=== PATIENT | male | born 1985 | race African-American/Black ===

== ENCOUNTER 2017-11-22 19:51 | Inpatient (IN) | payer MEDICAID, SELFPAY ==
[2017-11-22 19:53] VITALS: BP 115/79; PULSE 125; RESP 24; TEMP 39.5; O2SAT 94; BMI 34.0
--- NOTE | 2017-11-22 20:18 | RAD_ITS ---
STUDY: X-RAY CHEST REASON FOR EXAM: Male, 32 years old. Cough, persistent hiccups. TECHNIQUE: AP and lateral views of the chest. COMPARISON: None. FINDINGS: There are perihilar opacities associated with a patchy opacity within the right upper lobe. Normal size heart. Normal visualized aortic arch and descending thoracic aorta. Normal visualized thoracic spine. Normal visualized ribs, clavicles, and shoulders. There is no demonstrated abnormality of the visualized soft tissue structures of the upper abdomen. RAD/Chest PA and Lateral IMPRESSION: Right upper lobe and perihilar patchy opacities likely reflect some combination of pneumonia and/or edema, cannot exclude underlying neoplastic process. Recommend a CT or short interval follow-up chest radiograph in 6-8 weeks. Electronically Signed: Bibiana Figueroa MD at 21:06 EDT Tel , Service support ,
[2017-11-22] MEDS: Acetaminophen 500 MG Tablet 1000 MG PO (20:30)
[2017-11-22] MEDS: Ketorolac 30 MG/ML Syringe IV (20:35)
[2017-11-22] MEDS: 0.9% Normal Saline 1,000 ML 1000 ML IV ×2 (20:35→21:32)
[2017-11-22] MEDS: Ondansetron 4 MG/2 ML Vial IV (20:35)
[2017-11-22 20:54] LABS: Absolute Lymphocyte Count 1.05 X10^3/ul (0.83-4.51); Absolute Neutrophil Count 19.7 X10^3/uL (2.0-7.7); Basophil# 0.02 X10^3/uL; Basophil% 0.1 % (0-1); Hematocrit 44.3 % (40-54); Hemoglobin 15.4 g/dl (13.0-16.5); Lymphocyte # 1.05 X10^3/ul (4.0); Lymphocyte % 4.7 % (19-41); Mean Corp Hgb Conc 34.8 g/gl (32-36); Mean Corpuscular Hgb 28.9 pg (27.0-32.0); Mean Corpuscular Volume 83.1 fL (80-94); Mean Platelet Vol. 10.1 fl (6.2-12.0); Monocyte% 5.4 % (0-10); Neutrophil # 19.71 X10^3/uL (2.7-7.7); Neutrophil % 88.7 % (47-70); POSITIVE COUNT NO; POSITIVE DIFFERENTIAL NO; POSITIVE MORPHOLOGY NO; Platelet Count 205 K/mm3 (150-450); RBC Distribution Width CV 13.2 % (11.6-14.6); RBC Distribution Width SD 40.2 fl (35.1-43.9); Red Blood Count 5.33 M/mm3 (4.6-6.2); White Blood Count 22.2 K/mm3 (4.4-11.0)
[2017-11-22 21:17] LABS: Lactic Acid 1.7 mmol/L (0.4-2.0)
[2017-11-22] MEDS: levoFLOXacin IV 750 MG/150 ML BAG 100 MG IV (21:32)
[2017-11-22 21:34] VITALS: BP 139/89; PULSE 102; RESP 15; TEMP 38.3; O2SAT 94
[2017-11-22 21:40] LABS: ALB/GLOB Ratio 0.6 RATIO (0.9-2.4); AST(SGOT) 95 U/L (15-37); Alanine Aminotransfer ALT/SGPT 60 U/L (16-61); Albumin, Serum 2.7 g/dL (3.2-5.0); Alkaline Phosphatase 81 U/L (45-117); Anion Gap 9 (5-15); BUN 13 mg/dL (7-18); BUN/Creat Ratio 8.1 RATIO (10-20); Calcium,Total 8.5 mg/dL (8.5-10.1); Chloride 98 mmol/L (98-107); Creatinine, Serum 1.61 mg/dL (0.70-1.30); EST Glomerular Filtration Rate 53 mL/min (>60); Est Glom Filt Rate - Afr Amer 64 mL/min (>60); Estimated Creatinine Clearance 73.75 ml/min; Globulin 4.7 g/dL (2.2-4.2); Glucose 166 mg/dL (74-106); Potassium 3.6 mmol/L (3.5-5.1); Protein, Total 7.4 g/dL (6.4-8.2); Sodium Level 131 mmol/L (136-145)
--- NOTE | 2017-11-22 21:41 | EKG12_ITS ---
Test Reason : FEVER Blood Pressure : / mmHG Vent. Rate : 120 BPM Atrial Rate : 120 BPM P-R Int : 156 ms QRS Dur : 082 ms QT Int : 294 ms P-R-T Axes : 048 028 000 degrees QTc Int : 415 ms Sinus tachycardia Nonspecific T wave abnormality Abnormal ECG Confirmed by FARZANA GILBERT MD ([id number]), story editor JAZMINE PELLETIER ([id number]) on 11/24/2017 3:30:34 PM Referred By: LATIA Confirmed By:FARZANA GILBERT MD
[2017-11-22 22:05] LABS: Color, Urine Amber (Yellow); Glucose, Dipstick Normal (Normal); Ketone-Dipstick 5 mg/dl (Negative); Leukocyte Esterase-Dipstick 25 /ul (Negative); Nitrite-Dipstick Positive (Negative); Occult Blood-Urine 250 /ul (Negative); Protein-Dipstick 500 mg/dl (Negative); Urine Clarity Cloudy (Clear); Urine Urobilinogen 1 mg/dl (Normal)
[2017-11-22 22:07] LABS: Urine Bilirubin Dipstick 1 mg/dL (Negative)
[2017-11-22 22:30] VITALS: BP 132/85; PULSE 91; RESP 17; TEMP 38.1; O2SAT 96
--- NOTE | 2017-11-22 22:30 | ED.VISSUMM ---
- ER Visit Summary Date of Service: 11/22/17 Chief Complaint: Fever History of Present Illness: The patient is a [address] Bird. Patient reports that he has a fever that began 4 days ago. He reports that it has been 106?. Also complains of a cough that is productive of blood-tinged sputum. He has had moderate difficulty breathing and has been wheezing. He does not use an inhaler. Patient reports she has lower abdominal pain. He has been nauseated and vomited approximately 10 times. No blood in his emesis. He has had multiple episodes of watery diarrhea. No blood in stools or black tarry stools. Complains of a headache is 7-10 severity and generalized weakness. Physical Examination: Vitals: 103.1, 150/79, 125, 24, 94% room air which is not hypoxic. General: Well-nourished and well-developed. Head: Normocephalic atraumatic. Neck: Supple, no lymphadenopathy. No JVD. Nontender. Cardiovascular: Tachycardic regular rhythm. No murmurs. Respiratory: No respiratory distress. Clear to auscultation bilaterally. Abdominal: Soft, nontender, nondistended, normal bowel sounds. No guarding, rebound, or peritoneal signs. Back: Nontender. Extremities: Nontender, no edema. Skin: Normal color, no rash. Neurologic: Alert and oriented ?3. Cranial nerves II through XII are intact. Normal strength and sensation. Psych: Normal affect. Test Results: Chest x-ray shows right upper lobe and perihilar infiltrates. Influenza is negative. CBC is marked for white count 22.2 with 89 segmented neutrophils. Lactic acid is 1.7. Chem-7 is more for sodium 131 and glucose 166. Creatinine is 1.61. LFTs marked for an AST of 95. UA shows nitrites and blood as well as 4+ bacteria. Emergency Department Course and Treatment: Patient was given Levaquin IV. He was given Toradol and Tylenol for his fever. Is given Zofran for his nausea. He received 2 L of normal saline. Treatment Plan: Patient was discussed with Dr. Burrows. He will be admitted to the hospital for further evaluation and treatment. Disposition: Admitted in improved condition. Impression: 1. Pneumonia, community-acquired. 2. Sepsis. This note was generated with Dragon dictation software. It may contain incorrect words, spelling, and punctuation that were not noted in review of the chart prior to signing ED Disposition - Plan for ED Patient: Chief Complaint: Fever Referrals: Town Doctor,Out of [Primary Care Provider] -
[2017-11-22 22:36] LABS: White Blood Cells 0-5 SEEN /hpf (0-5)
[2017-11-22 22:37] LABS: Bacteria 4+ /hpf (None Seen); Squamous Epithelial Cells - UA 0-5 SEEN /hpf (0-5)
[2017-11-22 22:38] LABS: Coarse Granular Cast 5-10 SEEN /lpf (0-5 /lpf)
[2017-11-22 22:42] LABS: Mucous, Urine 1+ /hpf (<or=2+)
[2017-11-22 22:43] LABS: Red Blood Cells-Urine 0-5 SEEN /hpf (0-5)
--- NOTE | 2017-11-22 22:55 | PCM.HP.STD ---
Problem List (1) CAP (community acquired pneumonia) Status: Acute (2) Sepsis Status: Acute (3) KATIE (acute kidney injury) Status: Acute (4) Hyponatremia Status: Acute History of Present Illness Date of Admission: 11/22/17 Chief Complaint: Sepsis secondary to CAP The patient is a 32 year old male previously healthy admitted for sepsis secondary to CAP. He was evaluated in the ED on Thursday and was discussed after nebs treatment and zofran. However, he continued to have worsening productive cough with increase frequency and intensity. Nothing made it better or worse. His cough is persistent and severe. He sometimes noted that there is blood tinged in his sputum. He also noted chill and has fever to 106. He also has been having n/v. His n/v has been severe and would vomit up to 10x per day. He went to the ED for further workup. Past Medical History Allergies No Known Allergies Allergy (Verified 11/22/17 19:54) Home Medications: Ambulatory Orders Medication Instructions Recorded NK [NK] 11/22/17 Lives: Alone Smoking Status: Former smoker Alcohol: None Drugs: None - *Family History Maternal History Items: No pertinent history Review of Systems Constitutional: Reports: Chills, Fever. Denies: Weight Change HEENT: Denies: Head Aches, Sinus Congestion, Sinus Drainage Cardiovascular: Denies: Chest Pain, Palpitations Respiratory: Reports: Cough, Shortness of breath upon exertion, Sputum production, Wheezing. Denies: Shortness of breath at rest Gastrointestinal: Denies: Abdominal Pain, Nausea, Vomiting Genitourinary: Denies: Dysuria Musculoskeletal: Denies: Joint Pain, Joint Tenderness Skin: Denies: Rash, Wounds Neurological: Denies: Numbness, Tingling, Focal weakness Psychiatric: Denies: Anxiety, Depression, Homicidal Ideations, Suicidal Ideations Hematologic/ Lymphatic: Denies: Easy Bruising, Easy Bleeding VTE Information - Inpt Only VTE Present on Admission: No VTE Mechan Device Prophylaxis: SCD's VTE Pharm Prophylaxis ordered?: Yes Patient Problems: Active and Suspected Problems CAP (community acquired pneumonia) (Acute) Sepsis (Acute) KATIE (acute kidney injury) (Acute) Hyponatremia (Acute) - Physical Exam General: Alert, Oriented x3, Cooperative HEENT: Atraumatic, PERRLA, EOMI, Normocephalic Neck: Supple, No JVD, Negative Carotid Bruits Lungs: Rales, Wheezes, - - Crackle at base Cardiovascular: Regular rate, No murmurs, Tachycardic Abdomen: Bowel Sounds Present, Soft, Non Tender Extremities: No edema, Capillary Refill Less than 3 Seconds Skin: No rashes, No breakdown Musculoskeletal: No Tenderness to Palpation of Joints or Extremities Neurological: Cranial nerves II-XII grossly intact Psych/Mental Status: Normal Affect, Appropriate Vital Signs Temp Pulse Resp BP Pulse Ox 100.6 F H 91 17 132/85 H 96 11/22/17 22:30 11/22/17 22:30 11/22/17 22:30 11/22/17 22:30 11/22/17 22:30 Oxygen Delivery Method Room Air Weight: 116.8 kg Body Mass Index (BMI) 34.0 Microbiology Past 72 Hours 11/22/17 20:22 Influenza Types A,B Direct FA (QI) - Final Mucosa - Nose Laboratory Tests Past 24 Hrs 11/22/17 11/22/17 11/22/17 20:40 20:40 20:40 WBC 22.2 H RBC 5.33 Hgb 15.4 Hct 44.3 MCV 83.1 MCH 28.9 MCHC 34.8 RDW 13.2 RDW Differential 40.2 Plt Count 205 MPV 10.1 Immature Gran % (Auto) 1.100 H Neut % (Auto) 88.7 H Lymph % (Auto) 4.7 L Vance % (Auto) 5.4 Eos % (Auto) 0.0 Baso % (Auto) 0.1 Absolute Neuts (auto) 19.7 H Absolute Lymphs (auto) 1.05 Total Counted Not Reportable Sodium Cancelled Potassium Cancelled Chloride Cancelled Carbon Dioxide Cancelled Anion Gap Cancelled BUN Cancelled Creatinine Cancelled Estim Creat Clear Calc Cancelled Est GFR (MDRD) Af Amer Cancelled Est GFR (MDRD) Non-Af Cancelled BUN/Creatinine Ratio Cancelled Glucose Cancelled Lactic Acid 1.7 Calcium Cancelled Total Bilirubin Cancelled AST Cancelled ALT Cancelled Alkaline Phosphatase Cancelled Total Protein Cancelled Albumin Cancelled Globulin Cancelled Albumin/Globulin Ratio Cancelled Urine Color Urine Clarity Urine pH Ur Specific [place] Urine Protein Urine Glucose (UA) Urine Ketones Urine Occult Blood Urine Nitrite Urine Bilirubin Urine Urobilinogen Ur Leukocyte Esterase Urine RBC Urine WBC Ur Squamous Epith Cells Urine Bacteria Coarse Granular Casts Urine Mucus 04/22/18 04/22/18 21:15 21:46 WBC RBC Hgb Hct MCV MCH MCHC RDW RDW Differential Plt Count MPV Immature Gran % (Auto) Neut % (Auto) Lymph % (Auto) Vance % (Auto) Eos % (Auto) Baso % (Auto) Absolute Neuts (auto) Absolute Lymphs (auto) Total Counted Sodium 131 L Potassium 3.6 Chloride 98 Carbon Dioxide 24.0 Anion Gap 9 BUN 13 Creatinine 1.61 H Estim Creat Clear Calc 73.75 Est GFR (MDRD) Af Amer 64 Est GFR (MDRD) Non-Af 53 L BUN/Creatinine Ratio 8.1 L Glucose 166 H Lactic Acid Calcium 8.5 Total Bilirubin 0.60 AST 95 H ALT 60 Alkaline Phosphatase 81 Total Protein 7.4 Albumin 2.7 L Globulin 4.7 H Albumin/Globulin Ratio 0.6 L Urine Color Melly Urine Clarity Cloudy Urine pH 5.0 Ur Specific [place] 1.020 Urine Protein 500 H Urine Glucose (UA) Normal Urine Ketones 5 H Urine Occult Blood 250 H Urine Nitrite Positive H Urine Bilirubin 1 H Urine Urobilinogen 1 H Ur Leukocyte Esterase 25 H Urine RBC 0-5 SEEN Urine WBC 0-5 SEEN Ur Squamous Epith Cells 0-5 SEEN Urine Bacteria 4+ Coarse Granular Casts 5-10 SEEN Urine Mucus 1+ Assessment/Plan Active and Suspected Problems CAP (community acquired pneumonia) (Acute) Sepsis (Acute) KATIE (acute kidney injury) (Acute) Hyponatremia (Acute) 32 year old male previously healthy admitted for sepsis secondary to CAP. 1) Sepsis secondary to CAP: Xray disclosed right upper lobe and perihilar patchy opacities likely reflect some combination of pneumonia and/or edema, cannot exclude underlying neoplastic process. Will continue with ceftriaxone and azithromycin. Cultures pending. Will consider CT lung if no improvement. Supportive care. 2) KATIE: No clear baseline Cr. Likely secondary to ischemic injury. Hydration. Monitor. 3) Hyponatremia: Most likely hypovolemia hyponatremia. Hydration. If no improvement, will consider TSH, serum osmol, urine osmol, cortisol. Monitor. 4) Prophylaxis: SCD / heparin.
[2017-11-22 23:02] VITALS: BP 125/74; PULSE 95; RESP 20; O2SAT 95
[2017-11-23] VITALS (19 sets, daily range): BP systolic 126–168; BP diastolic 70–95; PULSE 90–126; RESP 16–33; TEMP 38–39.6; O2SAT 92–100; BMI 34.7; BMI 34.8
[2017-11-23] MEDS: 0.9% Normal Saline 1,000 ML 150 ML IV ×3 (02:04→20:01)
[2017-11-23] MEDS: Ceftriaxone 1 GM/50 ML BAG IV (02:06)
[2017-11-23] MEDS: proCHLORPERazine 10 MG/2 ML Vial 5 MG IV (03:28)
[2017-11-23] MEDS: 0.9% NaCl Peripheral Flush Adult/Peds IV ×2 (03:28→08:17)
[2017-11-23 04:33] LABS: Lactic Acid 1.4 mmol/L (0.4-2.0)
[2017-11-23 08:06] LABS: Amphetamine Urine VISTA NEGATIVE (<1000 ng/mL); Barbiturate Urine VISTA NEGATIVE (< 200 ng/mL); Benzodiazepine Urine VISTA NEGATIVE (< 200 ng/mL); Cocaine Urine VISTA NEGATIVE (< 300 ng/mL); Ecstacy Urine VISTA NEGATIVE (< 500 ng/mL); Methadone Urine VISTA NEGATIVE (< 300 ng/mL); PCP Urine VISTA NEGATIVE (< 25 ng/mL); THC Urine VISTA POSITIVE (< 50 ng/mL); Vista UDS pH Range 5
[2017-11-23] MEDS: Acetaminophen 325 MG Tablet 650 MG PO ×3 (08:17→23:20)
[2017-11-23] MEDS: Ondansetron 4 MG/2 ML Vial IV (08:17)
[2017-11-23] MEDS: hydrALAZINE 20 MG/ML Vial 10 MG IV (08:17)
--- NOTE | 2017-11-23 10:10 | PCM.PN.HOSP ---
Patient Problems: Active and Suspected Problems CAP (community acquired pneumonia) (Acute) Sepsis (Acute) KATIE (acute kidney injury) (Acute) Hyponatremia (Acute) Subjective: Patient with continued nausea and emesis as well as loose stools with negative stool studies. Notes dyspnea on coughing has improved but still ongoing. Reviewed current workup including positive Legionella antigen with patient with antibiotic change and planned evaluation per infectious disease coordinator. Patient did admit to tobacco use and occasional cannabis use although stated his usage was approximately 4 weeks prior and he does currently have a positive drug test. He did deny any other drug usage including any illicit narcotic therapy and his urine drug screen was positive for opiates. Patient denies fevers, chills, nausea, emesis, abdominal pain, chest pain. Objective: Physical Examination: General: awake, alert, oriented x 3 and cooperative, seated upright in bed, ongoing nausea and emesis. Skin: normal color, turgor, no icterus, cyanosis. HEENT: AT/NC, EOMI, PERRLA, dry MM. Lungs: Diminished BS R superior and mid posteriorly primarily, poor effort, dry heaving currently, no rales, ronchi or wheezing. Heart: Mildly tachycardic w/ regular rhythm; no gallop, rub audible. Abdomen: soft, obese, NTTP, ND, normal BS. Extremities: no cyanosis, clubbing, or edema. Neurological: patient awake, alert, oriented x 3; cognitive function intact; pupils equally reactive to light and accomodation; cranial nerves II-XII grossly normal, moving all 4 extremities, no focal deficits, strength severely globally decreased secondary to acute presentation. Psychiatric: affect appears fatigued, no acute evidence of depressive or anxiety feelings. Vitals/I&O's: Vital Signs Temp Pulse Resp BP Pulse Ox 100.4 F H 110 H 18 128/75 H 93 11/23/17 09:35 11/23/17 09:35 11/23/17 09:35 11/23/17 09:35 11/23/17 09:35 Oxygen Delivery Method Room Air Weight: 263 lb 7.238 oz Body Mass Index (BMI) 34.7 Intake and Output for Last 24 Hours 11/21/17 11/22/17 11/23/17 23:59 23:59 23:59 Intake Total 1851 Balance 1851 Microbiology Past 72 Hours 11/23/17 07:29 Urine, Clean Catch Streptococcus pneumoniae Antigen (M - Final 11/23/17 07:29 Urine, Clean Catch Legionella Antigen - Final Legionella Antigen Laboratory Results 11/23/17 04:00: Lactic Acid 1.4 11/23/17 07:29: Urine Opiates Screen POSITIVE H, Urine Methadone Screen NEGATIVE, Ur Barbiturates Screen NEGATIVE, Ur Phencyclidine Scrn NEGATIVE, Ur Amphetamines Screen NEGATIVE, U Methamphetamin-MDMA NEGATIVE, U Benzodiazepines Scrn NEGATIVE, Urine Cocaine Screen NEGATIVE, U Cannabinoids Screen POSITIVE H, Ur Drug Screen Comment Current Medications Acetaminophen (Tylenol) 650 mg PO Q4H PRN PRN PRN Reason: fever, pain Last Admin: 11/23/17 08:17 Dose: 650 mg Hydrocodone Bitart/Acetaminophen ([place] 5mg-325mg) 1 - 2 tablet PO Q6H PRN PRN PRN Reason: Moderate-severe pain Heparin Sodium (Porcine) (Heparin Na) 5,000 unit SC Q8 [facility] Last Admin: 11/23/17 06:14 Dose: Not Given Hydralazine HCl (Apresoline Iv) 10 mg IV Q4H PRN PRN PRN Reason: SBP > 160 Last Admin: 11/23/17 08:17 Dose: 10 mg Sodium Chloride () 1,000 mls @ 150 mls/hr IV .Q6H40M [facility] Last Admin: 11/23/17 02:04 Dose: 150 mls/hr Azithromycin 500 mg/ Dextrose 255 mls @ 250 mls/hr IV Q24 [facility] Stop: 11/25/17 11:02 Last Admin: 11/23/17 02:38 Dose: 250 mls/hr Ceftriaxone Sodium (Rocephin) 1 gm in 50 mls @ 100 mls/hr IV Q24 [facility] Last Admin: 11/23/17 02:06 Dose: 100 mls/hr Nutritional Formula (Lactose Free) (Ensure Clear) 120 ml PO TIDCM [facility] Last Admin: 11/23/17 08:15 Dose: 120 ml Ondansetron HCl (Zofran) 4 mg IV Q8H PRN PRN PRN Reason: NAUSEA/VOMITING Last Admin: 11/23/17 08:17 Dose: 4 mg Prochlorperazine Edisylate (Compazine Iv) 5 mg IV Q4H PRN PRN PRN Reason: NAUSEA/VOMITING Last Admin: 11/23/17 03:28 Dose: 5 mg Sodium Chloride () 5 - 30 ml IV UD PRN PRN Reason: SALINE FLUSH Last Admin: 11/23/17 08:17 Dose: 10 ml Temazepam (Restoril) 15 mg PO QHS PRN PRN PRN Reason: insomnia Medical Necessity - Tobacco Use Smoking Status: Current every day smoker Tobacco Use: Cigarettes Assessment/Plan Active and Suspected Problems CAP (community acquired pneumonia) (Acute) Sepsis (Acute) KATIE (acute kidney injury) (Acute) Hyponatremia (Acute) The patient is a 32 y/o M w/ PMHx: Obesity who presents to the [facility] ED on 11/22/17 with history of ongoing progressively worsening dyspnea, productive cough, fever, nausea and emesis x 5 days. (1) Acute Sepsis secondary to Acute Legionella Pneumonia and Acute UTI: CXR in the ED w/ right upper lobe and perihilar patchy opacities. Admission CBC w/ WBC 22.2 with left shift. Admitted to telemetry, maintain on oxygen with wean as tolerated to room air, continue ATC duonebs, PRN albuterol, maintained on IV Rocephin and Azithromycin-->transition back to Levaquin (duration x 14 days), HOB, IS parameters w/ pending sputum cultures and urine antigens. Bld cx x 2 obtained in the ED. LA 1.7-->1.4 repeat. Will need water sources investigated. Infectious control contacted and will interview patient for risk factors. C. difficile assay negative, likely secondary to acute Legionella infection given this may also cause GI side effects in addition to pneumonia presentation. (2) Acute kidney injury: Secondary to #1, poor intake and GI losses w/ N/V. Admission BUN/Cr 13/1.61, prior baseline creatinine reported normal. Will hydrate, hold nephrotoxic medications and repeat chemistry in AM. If no improvement would plan FeNa and renal US assessment. (3) Hyponatremia, Hypovolemic: Secondary to #2, poor intake and GI losses, KATIE as noted, continue treatment w/ hydration, trending. (4) Hyperglycemia: Admission glucose 166, HgbA1c pending, likely stress. (5) Obesity: Weight loss and lifestyle changes encouraged. (6) Elevated LFTs: Admission AST/ALT 95/60, possible secondary to dehydration as noted, repeat CMP pending. Hepatitis panels pending. (7) Polysubstance Abuse: UDS + opiates and cannabis, only admits to cannabis usage despite UDS review and notes last 4 weeks prior despite current positive testing. HIV, hepatitis panels pending. (8) Tobacco Abuse: Encouraged cessation, inpatient consultation per RT, NR if desired, notes ongoing 1/2 ppd tobacco use. (9) DVT Prophylaxis: SCDs, heparin. Code Visit Inpatient E&M: 04792 Subs Hosp L3
--- NOTE | 2017-11-23 10:26 | PN_ITS ---
Patient Problems: Active and Suspected Problems CAP (community acquired pneumonia) (Acute) Sepsis (Acute) KATIE (acute kidney injury) (Acute) Hyponatremia (Acute) Subjective: Patient with continued nausea and emesis as well as loose stools with negative stool studies. Notes dyspnea on coughing has improved but still ongoing. Reviewed current workup including positive Legionella antigen with patient with antibiotic change and planned evaluation per infectious disease coordinator. Patient did admit to tobacco use and occasional cannabis use although stated his usage was approximately 4 weeks prior and he does currently have a positive drug test. He did deny any other drug usage including any illicit narcotic therapy and his urine drug screen was positive for opiates. Patient denies fevers, chills, nausea, emesis, abdominal pain, chest pain. Objective: Physical Examination: General: awake, alert, oriented x 3 and cooperative, seated upright in bed, ongoing nausea and emesis. Skin: normal color, turgor, no icterus, cyanosis. HEENT: AT/NC, EOMI, PERRLA, dry MM. Lungs: Diminished BS R superior and mid posteriorly primarily, poor effort, dry heaving currently, no rales, ronchi or wheezing. Heart: Mildly tachycardic w/ regular rhythm; no gallop, rub audible. Abdomen: soft, obese, NTTP, ND, normal BS. Extremities: no cyanosis, clubbing, or edema. Neurological: patient awake, alert, oriented x 3; cognitive function intact; pupils equally reactive to light and accomodation; cranial nerves II-XII grossly normal, moving all 4 extremities, no focal deficits, strength severely globally decreased secondary to acute presentation. Psychiatric: affect appears fatigued, no acute evidence of depressive or anxiety feelings. Vitals/I&O's: Vital Signs Temp Pulse Resp BP Pulse Ox 100.4 F H 110 H 18 128/75 H 93 11/23/17 09:35 11/23/17 09:35 11/23/17 09:35 11/23/17 09:35 11/23/17 09:35 Oxygen Delivery Method Room Air Weight: 263 lb 7.238 oz Body Mass Index (BMI) 34.7 Intake and Output for Last 24 Hours 11/21/17 11/22/17 11/23/17 23:59 23:59 23:59 Intake Total 1851 Balance 1851 Microbiology Past 72 Hours 11/23/17 07:29 Urine, Clean Catch Streptococcus pneumoniae Antigen (M - Final 11/23/17 07:29 Urine, Clean Catch Legionella Antigen - Final Legionella Antigen Laboratory Results 11/23/17 04:00: Lactic Acid 1.4 11/23/17 07:29: Urine Opiates Screen POSITIVE H, Urine Methadone Screen NEGATIVE , Ur Barbiturates Screen NEGATIVE, Ur Phencyclidine Scrn NEGATIVE, Ur Amphetamines Screen NEGATIVE, U Methamphetamin-MDMA NEGATIVE, U Benzodiazepines Scrn NEGATIVE, Urine Cocaine Screen NEGATIVE, U Cannabinoids Screen POSITIVE H, Ur Drug Screen Comment Current Medications Acetaminophen (Tylenol) 650 mg PO Q4H PRN PRN PRN Reason: fever, pain Last Admin: 11/23/17 08:17 Dose: 650 mg Hydrocodone Bitart/Acetaminophen ([place] 5mg-325mg) 1 - 2 tablet PO Q6H PRN PRN PRN Reason: Moderate-severe pain Heparin Sodium (Porcine) (Heparin Na) 5,000 unit SC Q8 [facility] Last Admin: 11/23/17 06:14 Dose: Not Given Hydralazine HCl (Apresoline Iv) 10 mg IV Q4H PRN PRN PRN Reason: SBP > 160 Last Admin: 11/23/17 08:17 Dose: 10 mg Sodium Chloride () 1,000 mls @ 150 mls/hr IV .Q6H40M [facility] Last Admin: 11/23/17 02:04 Dose: 150 mls/hr Azithromycin 500 mg/ Dextrose 255 mls @ 250 mls/hr IV Q24 [facility] Stop: 11/25/17 11:02 Last Admin: 11/23/17 02:38 Dose: 250 mls/hr Ceftriaxone Sodium (Rocephin) 1 gm in 50 mls @ 100 mls/hr IV Q24 [facility] Last Admin: 11/23/17 02:06 Dose: 100 mls/hr Nutritional Formula (Lactose Free) (Ensure Clear) 120 ml PO TIDCM [facility] Last Admin: 11/23/17 08:15 Dose: 120 ml Ondansetron HCl (Zofran) 4 mg IV Q8H PRN PRN PRN Reason: NAUSEA/VOMITING Last Admin: 11/23/17 08:17 Dose: 4 mg Prochlorperazine Edisylate (Compazine Iv) 5 mg IV Q4H PRN PRN PRN Reason: NAUSEA/VOMITING Last Admin: 11/23/17 03:28 Dose: 5 mg Sodium Chloride () 5 - 30 ml IV UD PRN PRN Reason: SALINE FLUSH Last Admin: 11/23/17 08:17 Dose: 10 ml Temazepam (Restoril) 15 mg PO QHS PRN PRN PRN Reason: insomnia Medical Necessity - Tobacco Use Smoking Status: Current every day smoker Tobacco Use: Cigarettes Assessment/Plan Active and Suspected Problems CAP (community acquired pneumonia) (Acute) Sepsis (Acute) KATIE (acute kidney injury) (Acute) Hyponatremia (Acute) The patient is a 32 y/o M w/ PMHx: Obesity who presents to the [facility] ED on with history of ongoing progressively worsening dyspnea, productive cough, fever, nausea and emesis x 5 days. (1) Acute Sepsis secondary to Acute Legionella Pneumonia and Acute UTI: CXR in the ED w/ right upper lobe and perihilar patchy opacities. Admission CBC w/ WBC 22.2 with left shift. Admitted to telemetry, maintain on oxygen with wean as tolerated to room air, continue ATC duonebs, PRN albuterol, maintained on IV Rocephin and Azithromycin-->transition back to Levaquin (duration x 14 days), HOB, IS parameters w/ pending sputum cultures and urine antigens. Bld cx x 2 obtained in the ED. LA 1.7-->1.4 repeat. Will need water sources investigated. Infectious control contacted and will interview patient for risk factors. C. difficile assay negative, likely secondary to acute Legionella infection given this may also cause GI side effects in addition to pneumonia presentation. (2) Acute kidney injury: Secondary to #1, poor intake and GI losses w/ N/V. Admission BUN/Cr 13/1.61, prior baseline creatinine reported normal. Will hydrate, hold nephrotoxic medications and repeat chemistry in AM. If no improvement would plan FeNa and renal US assessment. (3) Hyponatremia, Hypovolemic: Secondary to #2, poor intake and GI losses, KATIE as noted, continue treatment w/ hydration, trending. (4) Hyperglycemia: Admission glucose 166, HgbA1c pending, likely stress. (5) Obesity: Weight loss and lifestyle changes encouraged. (6) Elevated LFTs: Admission AST/ALT 95/60, possible secondary to dehydration as noted, repeat CMP pending. Hepatitis panels pending. (7) Polysubstance Abuse: UDS + opiates and cannabis, only admits to cannabis usage despite UDS review and notes last 4 weeks prior despite current positive testing. HIV, hepatitis panels pending. (8) Tobacco Abuse: Encouraged cessation, inpatient consultation per RT, NR if desired, notes ongoing 1/2 ppd tobacco use. (9) DVT Prophylaxis: SCDs, heparin. Code Visit Inpatient E&M: 79839 Subs Hosp L3
[2017-11-23 11:01] LABS: Hematocrit 41.4 % (40-54); Hemoglobin 14.4 g/dl (13.0-16.5); Mean Corp Hgb Conc 34.8 g/gl (32-36); Mean Corpuscular Hgb 28.5 pg (27.0-32.0); Red Blood Count 5.05 M/mm3 (4.6-6.2); White Blood Count 20.9 K/mm3 (4.4-11.0)
[2017-11-23 11:02] LABS: Absolute Lymphocyte Count 1.17 X10^3/ul (0.83-4.51); Absolute Neutrophil Count 18.8 X10^3/uL (2.0-7.7); Basophil# 0.01 X10^3/uL; Lymphocyte # 1.17 X10^3/ul (4.0); Lymphocyte % 5.6 % (19-41); Mean Platelet Vol. 10.2 fl (6.2-12.0); Monocyte# 0.54 X10^3/uL; Monocyte% 2.3 % (0-10); Neutrophil # 18.82 X10^3/uL (2.7-7.7); Neutrophil % 90.3 % (47-70); POSITIVE COUNT NO; POSITIVE DIFFERENTIAL NO; POSITIVE MORPHOLOGY NO; Platelet Count 233 K/mm3 (150-450); RBC Distribution Width CV 13.3 % (11.6-14.6); RBC Distribution Width SD 39.5 fl (35.1-43.9)
[2017-11-23 11:14] LABS: ALB/GLOB Ratio 0.5 RATIO (0.9-2.4); AST(SGOT) 175 U/L (15-37); Alanine Aminotransfer ALT/SGPT 72 U/L (16-61); Albumin, Serum 2.3 g/dL (3.2-5.0); Alkaline Phosphatase 74 U/L (45-117); Anion Gap 8 (5-15); BUN 11 mg/dL (7-18); BUN/Creat Ratio 7.8 RATIO (10-20); Calcium,Total 8.3 mg/dL (8.5-10.1); Chloride 99 mmol/L (98-107); Creatinine, Serum 1.41 mg/dL (0.70-1.30); EST Glomerular Filtration Rate 61 mL/min (>60); Est Glom Filt Rate - Afr Amer 74 mL/min (>60); Estimated Creatinine Clearance 84.21 ml/min; Globulin 4.8 g/dL (2.2-4.2); Glucose 152 mg/dL (74-106); Hemoglobin A1c 6.7 % (4.2-6.3); Potassium 3.8 mmol/L (3.5-5.1); Protein, Total 7.1 g/dL (6.4-8.2); Sodium Level 131 mmol/L (136-145)
[2017-11-23] MEDS: levoFLOXacin IV 750 MG/150 ML BAG 100 MG IV (11:37)
--- NOTE | 2017-11-23 11:48 | CASEMGMT ---
Addendum entered by Megan Anna 11/23/17 14:10: 1350 This RN CM to room to complete CM assessment and pt is in the bathroom at this time. Will attempt again later. Tiago ZAZUETA CM Original Note: This RN CM to room to complete CM assessment and pt is sleeping at this time. Will attempt again later. Tiago ZAZUETA CM
[2017-11-23 12:02] LABS: HIV - WCH Non-Reactive (Nonreactive)
[2017-11-23] MEDS: Heparin Injection (Vial) 5,000 UNIT/ML VIAL 5000 UNIT SC ×2 (13:41→21:40)
[2017-11-23] MEDS: proMETHazine 25 MG/ML Syringe 12.5 MG IV ×2 (13:41→19:55)
--- NOTE | 2017-11-23 14:34 | CASEMGMT ---
Face to Face with patient for initial transition planning/care coordination assessment. CARLITA JOHNSON introduced self and role at [facility], pt voices understanding and consents to assessment at this time. Pt is sitting up in bed with hiccups at this time. Pt is A/Ox4 at this time and answers all questions appropriately at this time. Care providers, pharmacy, and demographics verified. See attached link. Pt voices no further concerns/needs at this time. Advised pt to ask for CM if any further questions/concerns/needs arise, voices understanding. PLAN[place] CARLITA JOHNSON
[2017-11-24] VITALS (12 sets, daily range): BP systolic 128–142; BP diastolic 86–91; PULSE 83–116; RESP 16–22; TEMP 36.8–37.4; O2SAT 93–94
[2017-11-24] MEDS: 0.9% Normal Saline 1,000 ML 150 ML IV ×3 (03:47→21:11)
[2017-11-24] MEDS: proMETHazine 25 MG/ML Syringe 12.5 MG IV ×3 (03:50→19:41)
[2017-11-24 04:09] LABS: HEPATITIS B SURFACE AG Negative (Negative); Hepatitis A AB, Total Negative (Negative); Hepatitis A IgM Antibody Negative (Negative); Hepatitis B Core AB IgM Negative (Negative); Hepatitis B Core Ab Total Negative (Negative); Hepatitis C Ab <0.1 s/co ratio (0.0-0.9)
[2017-11-24] MEDS: Heparin Injection (Vial) 5,000 UNIT/ML VIAL 5000 UNIT SC ×3 (05:21→21:11)
[2017-11-24 06:08] LABS: Absolute Lymphocyte Count 1.31 X10^3/ul (0.83-4.51); Absolute Neutrophil Count 12.7 X10^3/uL (2.0-7.7); Basophil# 0.02 X10^3/uL; Basophil% 0.1 % (0-1); Eosinophil# 0.01 X10^3/uL; Eosinophils% 0.1 % (0-5); Hematocrit 39.9 % (40-54); Hemoglobin 13.7 g/dl (13.0-16.5); Lymphocyte # 1.31 X10^3/ul (4.0); Lymphocyte % 8.8 % (19-41); Mean Corp Hgb Conc 34.3 g/gl (32-36); Mean Corpuscular Hgb 28.5 pg (27.0-32.0); Mean Corpuscular Volume 83.1 fL (80-94); Mean Platelet Vol. 10.1 fl (6.2-12.0); Monocyte# 0.81 X10^3/uL; Monocyte% 5.4 % (0-10); Neutrophil % 85.1 % (47-70); Platelet Count 240 K/mm3 (150-450); RBC Distribution Width CV 13.7 % (11.6-14.6); White Blood Count 14.9 K/mm3 (4.4-11.0)
[2017-11-24 06:16] LABS: POSITIVE COUNT NO; POSITIVE DIFFERENTIAL NO; POSITIVE MORPHOLOGY NO
[2017-11-24 06:26] LABS: ALB/GLOB Ratio 0.5 RATIO (0.9-2.4); AST(SGOT) 291 U/L (15-37); Alanine Aminotransfer ALT/SGPT 100 U/L (16-61); Albumin, Serum 2.2 g/dL (3.2-5.0); Alkaline Phosphatase 67 U/L (45-117); Anion Gap 8 (5-15); BUN 11 mg/dL (7-18); BUN/Creat Ratio 8.5 RATIO (10-20); Calcium,Total 8.2 mg/dL (8.5-10.1); Chloride 102 mmol/L (98-107); EST Glomerular Filtration Rate 67 mL/min (>60); Est Glom Filt Rate - Afr Amer 82 mL/min (>60); Estimated Creatinine Clearance 91.34 ml/min; Globulin 4.2 g/dL (2.2-4.2); Glucose 111 mg/dL (74-106); Protein, Total 6.4 g/dL (6.4-8.2); Sodium Level 135 mmol/L (136-145)
[2017-11-24] MEDS: HYDROcodone Bitartrate/Apap 5/325 Tablet PO ×2 (08:28→19:40)
[2017-11-24] MEDS: guaiFENesin Dm 10 ML UDC 5 ML PO ×3 (09:58→23:56)
[2017-11-24] MEDS: BENZOCAINE/MENTHOL 1 LOZENGE MUCOUS MEM ×3 (09:59→19:40)
--- NOTE | 2017-11-24 10:22 | US_ITS ---
STUDY: ABDOMINAL ULTRASOUND - RIGHT UPPER QUADRANT REASON FOR VISIT: Male, 32 years old. Elevated liver function tests TECHNIQUE: Transverse and longitudinal imaging of the right upper quadrant was performed using real-time ultrasound. COMPARISON: None. FINDINGS: Liver: The liver measures 17 cm. There is normal echogenicity of the liver. The direction of portal flow is hepatopetal. There is no demonstrated mass in the liver. Gallbladder: The gallbladder is normal in size. The gallbladder wall measures 3.3 mm. There is a negative sonographic Dainel's sign. There is no demonstrated pericholecystic fluid. There are no abnormalities in the lumen of the gallbladder. Common Bile Duct (C.B.D.): The common bile duct measures 3.2 mm. Pancreas: The pancreas was not adequately visualized. Right Kidney: The right kidney measures 11.3 cm. The right cortex measures 2.0 cm. There is no demonstrated mass in the right kidney. There is no dilatation of the collecting system. There is no demonstrated free fluid. US/Liver IMPRESSION: The liver is prominent in size but shows no significant abnormal echotexture or evidence of masses. No abnormalities are seen in the gallbladder. There is no biliary ductal dilatation. Electronically Signed: Sheryl Granger MD at 17:40 EDT Tel Direct: [phone], Service support ,
--- NOTE | 2017-11-24 10:51 | PCM.PN.HOSP ---
Patient Problems: Active and Suspected Problems CAP (community acquired pneumonia) (Acute) Sepsis (Acute) KATIE (acute kidney injury) (Acute) Hyponatremia (Acute) Subjective: Patient overnight with no acute events per self and per nursing report. Patient notes his nausea and emesis has resolved and is requesting diet advancement. Patient with now increased coughing but this is improved with guaifenesin administration. Patient notes dyspnea has improved remarkably. Loose stools also improving. Discussed recent hemoglobin A1c results with plan diabetic education, insulin sliding scale with Accu-Cheks and medication regimen upon discharge. Patient denies fevers, chills, nausea, emesis, abdominal pain, chest pain or recurrent or worsened dyspnea. Objective: Physical Examination: General: awake, alert, oriented x 3 and cooperative, seated upright in bed, more well appearing, no acute distress currently. Skin: normal color, turgor, no icterus, cyanosis. HEENT: AT/NC, EOMI, PERRLA, MMM. Lungs: Continued diminished BS R superior and mid posteriorly primarily, improved effort, no rales, ronchi or wheezing. Heart: Regular rate and regular rhythm; no gallop, rub audible. Abdomen: soft, obese, NTTP, ND, normal BS. Extremities: no cyanosis, clubbing, or edema. Neurological: patient awake, alert, oriented x 3; cognitive function intact; pupils equally reactive to light and accomodation; cranial nerves II-XII grossly normal, moving all 4 extremities, no focal deficits, strength improved, mildly to moderately globally decreased secondary to acute presentation. Psychiatric: affect appears improved, no acute evidence of depressive or anxiety feelings. Vitals/I&O's: Vital Signs Temp Pulse Resp BP Pulse Ox 99.3 F H 96 22 H 128/86 H 94 11/24/17 10:03 11/24/17 10:03 11/24/17 10:03 11/24/17 10:03 11/24/17 10:03 Oxygen Flow Rate (L/min) 2 Oxygen Delivery Method Room Air Weight: 263 lb 7.238 oz Body Mass Index (BMI) 34.7 Intake and Output for Last 24 Hours 11/22/17 11/23/17 11/24/17 23:59 23:59 23:59 Intake Total 4864 / 4864 864 / 864 Output Total 1075 / 1075 200 / 200 Balance 3789 / 3789 664 / 664 Microbiology Past 72 Hours 11/23/17 08:10 Stool C. difficile DNA Amplification - Final 11/23/17 07:29 Urine, Clean Catch Streptococcus pneumoniae Antigen (M - Final 11/23/17 07:29 Urine, Clean Catch Legionella Antigen - Final Legionella Antigen Laboratory Results 11/23/17 10:40: WBC 20.9 H, RBC 5.05, Hgb 14.4, Hct 41.4, MCV 82.0, MCH 28.5, MCHC 34.8, RDW 13.3, RDW Differential 39.5, Plt Count 233, MPV 10.2, Immature Gran % (Auto) 1.500 H, Neut % (Auto) 90.3 H, Lymph % (Auto) 5.6 L, [place] % (Auto) 2.3, Eos % (Auto) 0.0, Baso % (Auto) 0.0, Absolute Neuts (auto) 18.8 H, Absolute Lymphs (auto) 1.17, Total Counted Not Reportable 11/23/17 10:40: Sodium 131 L, Potassium 3.8, Chloride 99, Carbon Dioxide 24.0, Anion Gap 8, BUN 11, Creatinine 1.41 H, Estim Creat Clear Calc 84.21, Est GFR (MDRD) Af Amer 74, Est GFR (MDRD) Non-Af 61, BUN/Creatinine Ratio 7.8 L, Glucose 152 H, Calcium 8.3 L, Total Bilirubin 0.30, AST 175 H, ALT 72 H, Alkaline Phosphatase 74, Total Protein 7.1, Albumin 2.3 L, Globulin 4.8 H, Albumin/Globulin Ratio 0.5 L 11/23/17 10:40: Hemoglobin A1c 6.7 H 11/23/17 10:40: Hepatitis A IgM Ab Pending, Hepatitis A Ab Total Pending, Hep Bs Antigen Pending, Hep B Core Total Ab Pending, Hep B Core IgM Ab Pending, Hepatitis C Comment Pending 11/23/17 10:40: HIV 1&2 Antibody Non-Reactive 11/24/17 05:50: WBC 14.9 H, RBC 4.80, Hgb 13.7, Hct 39.9 L, MCV 83.1, MCH 28.5, MCHC 34.3, RDW 13.7, RDW Differential 41.0, Plt Count 240, MPV 10.1, Immature Gran % (Auto) 0.500, Neut % (Auto) 85.1 H, Lymph % (Auto) 8.8 L, [place] % (Auto) 5.4, Eos % (Auto) 0.1, Baso % (Auto) 0.1, Absolute Neuts (auto) 12.7 H, Absolute Lymphs (auto) 1.31, Total Counted Not Reportable 11/24/17 05:50: Sodium 135 L, Potassium 4.0, Chloride 102, Carbon Dioxide 25.0, Anion Gap 8, BUN 11, Creatinine 1.30, Estim Creat Clear Calc 91.34, Est GFR (MDRD) Af Amer 82, Est GFR (MDRD) Non-Af 67, BUN/Creatinine Ratio 8.5 L, Glucose 111 H, Calcium 8.2 L, Total Bilirubin 0.40, AST 291 H, ALT 100 H, Alkaline Phosphatase 67, Total Protein 6.4, Albumin 2.2 L, Globulin 4.2, Albumin/Globulin Ratio 0.5 L Current Medications Acetaminophen (Tylenol) 650 mg PO Q4H PRN PRN PRN Reason: fever, pain Last Admin: 11/23/17 23:20 Dose: 650 mg Hydrocodone Bitart/Acetaminophen ([place] 5mg-325mg) 1 - 2 tablet PO Q6H PRN PRN PRN Reason: Moderate-severe pain Last Admin: 11/24/17 08:28 Dose: 2 tablet Guaifenesin (Robitussin Dm) 5 ml PO Q6H PRN PRN PRN Reason: COUGH Last Admin: 11/24/17 09:58 Dose: 5 ml Heparin Sodium (Porcine) (Heparin Na) 5,000 unit SC Q8 [facility] Last Admin: 11/24/17 05:21 Dose: 5,000 u Hydralazine HCl (Apresoline Iv) 10 mg IV Q4H PRN PRN PRN Reason: SBP > 160 Last Admin: 11/23/17 08:17 Dose: 10 mg Sodium Chloride () 1,000 mls @ 150 mls/hr IV .Q6H40M [facility] Last Admin: 11/24/17 03:47 Dose: 150 mls/hr Levofloxacin (Levaquin Iv) 750 mg in 150 mls @ 100 mls/hr IV Q24 [facility] Stop: 12/05/17 11:29 Last Admin: 11/23/17 11:37 Dose: 100 mls/hr Famotidine (Pepcid 20mg) 20 mg in 50 mls @ 150 mls/hr IV Q12 [facility] Last Admin: 11/24/17 09:59 Dose: 150 mls/hr Sodium Chloride () 1,000 mls @ 999 mls/hr IV .Q1H1M ONE Stop: 11/24/17 11:22 Nutritional Formula (Lactose Free) (Ensure Clear) 120 ml PO TIDCM [facility] Last Admin: 11/24/17 08:24 Dose: 120 ml Ondansetron HCl (Zofran) 4 mg IV Q8H PRN PRN PRN Reason: NAUSEA/VOMITING Last Admin: 11/23/17 08:17 Dose: 4 mg Prochlorperazine Edisylate (Compazine Iv) 5 mg IV Q4H PRN PRN PRN Reason: NAUSEA/VOMITING Last Admin: 11/23/17 03:28 Dose: 5 mg Promethazine HCl (Phenergan) 12.5 mg IV Q4H PRN PRN PRN Reason: NAUSEA/VOMITING Last Admin: 11/24/17 08:28 Dose: 12.5 mg Sodium Chloride () 5 - 30 ml IV UD PRN PRN Reason: SALINE FLUSH Last Admin: 11/23/17 08:17 Dose: 10 ml Temazepam (Restoril) 15 mg PO QHS PRN PRN PRN Reason: insomnia Throat Lozenges (Cepacol Sore Throat Lozenge) 1 lozenge MUCOUS MEM Q2H PRN PRN PRN Reason: cough, sore throat Last Admin: 11/24/17 09:59 Dose: 1 lozenge Medical Necessity - Tobacco Use Smoking Status: Current every day smoker Tobacco Use: Cigarettes Assessment/Plan Active and Suspected Problems CAP (community acquired pneumonia) (Acute) Sepsis (Acute) KATIE (acute kidney injury) (Acute) Hyponatremia (Acute) The patient is a 32 y/o M w/ PMHx: Obesity who presents to the [facility] ED on 11/22/17 with history of ongoing progressively worsening dyspnea, productive cough, fever, nausea and emesis x 5 days. (1) Acute Sepsis secondary to Acute Legionella Pneumonia and Acute UTI: CXR in the ED w/ right upper lobe and perihilar patchy opacities. Admission CBC w/ WBC 22.2 with left shift. Admitted to telemetry, maintained on oxygen with wean as tolerated to room air, continue ATC duonebs, PRN albuterol, maintained on IV Rocephin and Azithromycin-->transitioned 11/23/17 back to Levaquin (duration x 14 days) given + legionella antigen, HOB, IS parameters w/ pending sputum cultures, urine antigens w/ + legionella antigen as noted. Bld cx x 2 obtained in the ED. LA 1.7-->1.4 repeat w/ 11/24/17 repeat 1.2. Infectious control contacted and will interview patient for risk factors. C. difficile assay negative, likely secondary to acute Legionella infection given this may also cause GI side effects in addition to pneumonia presentation. If continued improvement consider discharge to home tomorrow. (2) Acute kidney injury: Secondary to #1, poor intake and GI losses w/ N/V. Admission BUN/Cr 13/1.61, prior baseline creatinine reported normal, hydrated, repeat 11/24/17 BUN/Cr 11/1.30, improving. (3) Hyponatremia, Hypovolemic: Secondary to #2, poor intake and GI losses, KATIE as noted, admission Na 131, 11/24/17 improving, Na 135, continue hydration. (4) New Diagnosis w/ Diabetes mellitus type II, Hyperglycemia: Admission glucose 166, HgbA1c 6.7%, add ISS, accu checks, nutrition consultation for education, will need addition metformin upon discharge. (5) Obesity: Weight loss and lifestyle changes encouraged, nutrition consulted, pending. (6) Elevated LFTs: Admission AST/ALT 95/60, possible secondary to acute persentation/dehydration as noted, repeat CMP increased, 11/24/17 AST/ALT 291/100, will obtain Liver US, Hepatitis panel unremarkable, HIV negative. (7) Polysubstance Abuse: UDS + opiates and cannabis, only admits to cannabis usage despite UDS review and notes last 4 weeks prior despite current positive testing. HIV, hepatitis panels both unremarkable. (8) Tobacco Abuse: Encouraged cessation, inpatient consultation per RT, NR if desired, notes ongoing 1/2 ppd tobacco use. (9) DVT Prophylaxis: SCDs, heparin. Code Visit Inpatient E&M: 04704 Subs Hosp L2
[2017-11-24 10:54] LABS: Hep B Surface Antibodies Non Reactive (.)
--- NOTE | 2017-11-24 10:55 | PN_ITS ---
Patient Problems: Active and Suspected Problems CAP (community acquired pneumonia) (Acute) Sepsis (Acute) KATIE (acute kidney injury) (Acute) Hyponatremia (Acute) Subjective: Patient overnight with no acute events per self and per nursing report. Patient notes his nausea and emesis has resolved and is requesting diet advancement. Patient with now increased coughing but this is improved with guaifenesin administration. Patient notes dyspnea has improved remarkably. Loose stools also improving. Discussed recent hemoglobin A1c results with plan diabetic education, insulin sliding scale with Accu-Cheks and medication regimen upon discharge. Patient denies fevers, chills, nausea, emesis, abdominal pain, chest pain or recurrent or worsened dyspnea. Objective: Physical Examination: General: awake, alert, oriented x 3 and cooperative, seated upright in bed, more well appearing, no acute distress currently. Skin: normal color, turgor, no icterus, cyanosis. HEENT: AT/NC, EOMI, PERRLA, MMM. Lungs: Continued diminished BS R superior and mid posteriorly primarily, improved effort, no rales, ronchi or wheezing. Heart: Regular rate and regular rhythm; no gallop, rub audible. Abdomen: soft, obese, NTTP, ND, normal BS. Extremities: no cyanosis, clubbing, or edema. Neurological: patient awake, alert, oriented x 3; cognitive function intact; pupils equally reactive to light and accomodation; cranial nerves II-XII grossly normal, moving all 4 extremities, no focal deficits, strength improved, mildly to moderately globally decreased secondary to acute presentation. Psychiatric: affect appears improved, no acute evidence of depressive or anxiety feelings. Vitals/I&O's: Vital Signs Temp Pulse Resp BP Pulse Ox 99.3 F H 96 22 H 128/86 H 94 11/24/17 10:03 11/24/17 10:03 11/24/17 10:03 11/24/17 10:03 11/24/17 10:03 Oxygen Flow Rate (L/min) 2 Oxygen Delivery Method Room Air Weight: 263 lb 7.238 oz Body Mass Index (BMI) 34.7 Intake and Output for Last 24 Hours 11/22/17 11/23/17 11/24/17 23:59 23:59 23:59 Intake Total 4864 / 4864 864 / 864 Output Total 1075 / 1075 200 / 200 Balance 3789 / 3789 664 / 664 Microbiology Past 72 Hours 11/23/17 08:10 Stool C. difficile DNA Amplification - Final 11/23/17 07:29 Urine, Clean Catch Streptococcus pneumoniae Antigen (M - Final 11/23/17 07:29 Urine, Clean Catch Legionella Antigen - Final Legionella Antigen Laboratory Results 11/23/17 10:40: WBC 20.9 H, RBC 5.05, Hgb 14.4, Hct 41.4, MCV 82.0, MCH 28.5, MCHC 34.8, RDW 13.3, RDW Differential 39.5, Plt Count 233, MPV 10.2, Immature Gran % (Auto) 1.500 H, Neut % (Auto) 90.3 H, Lymph % (Auto) 5.6 L, [place] % (Auto ) 2.3, Eos % (Auto) 0.0, Baso % (Auto) 0.0, Absolute Neuts (auto) 18.8 H, Absolute Lymphs (auto) 1.17, Total Counted Not Reportable 11/23/17 10:40: Sodium 131 L, Potassium 3.8, Chloride 99, Carbon Dioxide 24.0, Anion Gap 8, BUN 11, Creatinine 1.41 H, Estim Creat Clear Calc 84.21, Est GFR ( MDRD) Af Amer 74, Est GFR (MDRD) Non-Af 61, BUN/Creatinine Ratio 7.8 L, Glucose 152 H, Calcium 8.3 L, Total Bilirubin 0.30, AST 175 H, ALT 72 H, Alkaline Phosphatase 74, Total Protein 7.1, Albumin 2.3 L, Globulin 4.8 H, Albumin/ Globulin Ratio 0.5 L 11/23/17 10:40: Hemoglobin A1c 6.7 H 11/23/17 10:40: Hepatitis A IgM Ab Pending, Hepatitis A Ab Total Pending, Hep Bs Antigen Pending, Hep B Core Total Ab Pending, Hep B Core IgM Ab Pending, Hepatitis C Comment Pending 11/23/17 10:40: HIV 1&2 Antibody Non-Reactive 11/24/17 05:50: WBC 14.9 H, RBC 4.80, Hgb 13.7, Hct 39.9 L, MCV 83.1, MCH 28.5, MCHC 34.3, RDW 13.7, RDW Differential 41.0, Plt Count 240, MPV 10.1, Immature Gran % (Auto) 0.500, Neut % (Auto) 85.1 H, Lymph % (Auto) 8.8 L, [place] % (Auto) 5.4, Eos % (Auto) 0.1, Baso % (Auto) 0.1, Absolute Neuts (auto) 12.7 H, Absolute Lymphs (auto) 1.31, Total Counted Not Reportable 11/24/17 05:50: Sodium 135 L, Potassium 4.0, Chloride 102, Carbon Dioxide 25.0, Anion Gap 8, BUN 11, Creatinine 1.30, Estim Creat Clear Calc 91.34, Est GFR ( MDRD) Af Amer 82, Est GFR (MDRD) Non-Af 67, BUN/Creatinine Ratio 8.5 L, Glucose 111 H, Calcium 8.2 L, Total Bilirubin 0.40, AST 291 H, ALT 100 H, Alkaline Phosphatase 67, Total Protein 6.4, Albumin 2.2 L, Globulin 4.2, Albumin/ Globulin Ratio 0.5 L Current Medications Acetaminophen (Tylenol) 650 mg PO Q4H PRN PRN PRN Reason: fever, pain Last Admin: 11/23/17 23:20 Dose: 650 mg Hydrocodone Bitart/Acetaminophen ([place] 5mg-325mg) 1 - 2 tablet PO Q6H PRN PRN PRN Reason: Moderate-severe pain Last Admin: 11/24/17 08:28 Dose: 2 tablet Guaifenesin (Robitussin Dm) 5 ml PO Q6H PRN PRN PRN Reason: COUGH Last Admin: 11/24/17 09:58 Dose: 5 ml Heparin Sodium (Porcine) (Heparin Na) 5,000 unit SC Q8 [facility] Last Admin: 11/24/17 05:21 Dose: 5,000 u Hydralazine HCl (Apresoline Iv) 10 mg IV Q4H PRN PRN PRN Reason: SBP > 160 Last Admin: 11/23/17 08:17 Dose: 10 mg Sodium Chloride () 1,000 mls @ 150 mls/hr IV .Q6H40M [facility] Last Admin: 11/24/17 03:47 Dose: 150 mls/hr Levofloxacin (Levaquin Iv) 750 mg in 150 mls @ 100 mls/hr IV Q24 [facility] Stop: 12/05/17 11:29 Last Admin: 11/23/17 11:37 Dose: 100 mls/hr Famotidine (Pepcid 20mg) 20 mg in 50 mls @ 150 mls/hr IV Q12 [facility] Last Admin: 11/24/17 09:59 Dose: 150 mls/hr Sodium Chloride () 1,000 mls @ 999 mls/hr IV .Q1H1M [facility] Stop: 11/24/17 11:22 Nutritional Formula (Lactose Free) (Ensure Clear) 120 ml PO TIDCM [facility] Last Admin: 11/24/17 08:24 Dose: 120 ml Ondansetron HCl (Zofran) 4 mg IV Q8H PRN PRN PRN Reason: NAUSEA/VOMITING Last Admin: 11/23/17 08:17 Dose: 4 mg Prochlorperazine Edisylate (Compazine Iv) 5 mg IV Q4H PRN PRN PRN Reason: NAUSEA/VOMITING Last Admin: 11/23/17 03:28 Dose: 5 mg Promethazine HCl (Phenergan) 12.5 mg IV Q4H PRN PRN PRN Reason: NAUSEA/VOMITING Last Admin: 11/24/17 08:28 Dose: 12.5 mg Sodium Chloride () 5 - 30 ml IV UD PRN PRN Reason: SALINE FLUSH Last Admin: 11/23/17 08:17 Dose: 10 ml Temazepam (Restoril) 15 mg PO QHS PRN PRN PRN Reason: insomnia Throat Lozenges (Cepacol Sore Throat Lozenge) 1 lozenge MUCOUS MEM Q2H PRN PRN PRN Reason: cough, sore throat Last Admin: 11/24/17 09:59 Dose: 1 lozenge Medical Necessity - Tobacco Use Smoking Status: Current every day smoker Tobacco Use: Cigarettes Assessment/Plan Active and Suspected Problems CAP (community acquired pneumonia) (Acute) Sepsis (Acute) KATIE (acute kidney injury) (Acute) Hyponatremia (Acute) The patient is a 32 y/o M w/ PMHx: Obesity who presents to the [facility] ED on with history of ongoing progressively worsening dyspnea, productive cough, fever, nausea and emesis x 5 days. (1) Acute Sepsis secondary to Acute Legionella Pneumonia and Acute UTI: CXR in the ED w/ right upper lobe and perihilar patchy opacities. Admission CBC w/ WBC 22.2 with left shift. Admitted to telemetry, maintained on oxygen with wean as tolerated to room air, continue ATC duonebs, PRN albuterol, maintained on IV Rocephin and Azithromycin-->transitioned 11/23/17 back to Levaquin (duration x 14 days) given + legionella antigen, HOB, IS parameters w/ pending sputum cultures, urine antigens w/ + legionella antigen as noted. Bld cx x 2 obtained in the ED. LA 1.7-->1.4 repeat w/ 11/24/17 repeat 1.2. Infectious control contacted and will interview patient for risk factors. C. difficile assay negative, likely secondary to acute Legionella infection given this may also cause GI side effects in addition to pneumonia presentation. If continued improvement consider discharge to home tomorrow. (2) Acute kidney injury: Secondary to #1, poor intake and GI losses w/ N/V. Admission BUN/Cr 13/1.61, prior baseline creatinine reported normal, hydrated, repeat 11/24/17 BUN/Cr 11/1.30, improving. (3) Hyponatremia, Hypovolemic: Secondary to #2, poor intake and GI losses, KATIE as noted, admission Na 131, 11/24/17 improving, Na 135, continue hydration. (4) New Diagnosis w/ Diabetes mellitus type II, Hyperglycemia: Admission glucose 166, HgbA1c 6.7%, add ISS, accu checks, nutrition consultation for education, will need addition metformin upon discharge. (5) Obesity: Weight loss and lifestyle changes encouraged, nutrition consulted, pending. (6) Elevated LFTs: Admission AST/ALT 95/60, possible secondary to acute persentation/dehydration as noted, repeat CMP increased, 11/24/17 AST/ALT 291/100 , will obtain Liver US, Hepatitis panel unremarkable, HIV negative. (7) Polysubstance Abuse: UDS + opiates and cannabis, only admits to cannabis usage despite UDS review and notes last 4 weeks prior despite current positive testing. HIV, hepatitis panels both unremarkable. (8) Tobacco Abuse: Encouraged cessation, inpatient consultation per RT, NR if desired, notes ongoing 1/2 ppd tobacco use. (9) DVT Prophylaxis: SCDs, heparin. Code Visit Inpatient E&M: 53176 Subs Hosp L2
[2017-11-24] MEDS: levoFLOXacin IV 750 MG/150 ML BAG 100 MG IV (11:11)
[2017-11-24] MEDS: 0.9% Normal Saline 1,000 ML 999 ML IV (11:13)
[2017-11-24 11:26] LABS: Bedside Glucose 127 mg/dL (70-110)
[2017-11-24 11:36] LABS: Lactic Acid 1.2 mmol/L (0.4-2.0)
[2017-11-24] MEDS: Acetaminophen 325 MG Tablet 650 MG PO (16:09)
[2017-11-24 16:11] LABS: Bedside Glucose 125 mg/dL (70-110)
[2017-11-24 21:31] LABS: Bedside Glucose 130 mg/dL (70-110)
[2017-11-25] VITALS (14 sets, daily range): BP systolic 124–158; BP diastolic 76–96; PULSE 66–122; RESP 16–18; TEMP 36.9–38.1; O2SAT 90–96
[2017-11-25] MEDS: Ondansetron 4 MG/2 ML Vial IV ×2 (00:12→09:38)
[2017-11-25] MEDS: BENZOCAINE/MENTHOL 1 LOZENGE MUCOUS MEM ×3 (02:41→16:23)
[2017-11-25] MEDS: 0.9% Normal Saline 1,000 ML 150 ML IV (04:16)
[2017-11-25] MEDS: proMETHazine 25 MG/ML Syringe 12.5 MG IV ×3 (05:26→20:37)
[2017-11-25] MEDS: Heparin Injection (Vial) 5,000 UNIT/ML VIAL 5000 UNIT SC ×3 (05:26→22:22)
[2017-11-25] MEDS: guaiFENesin Dm 10 ML UDC 5 ML PO ×3 (05:26→20:37)
[2017-11-25 06:13] LABS: ALB/GLOB Ratio 0.5 RATIO (0.9-2.4); AST(SGOT) 260 U/L (15-37); Alanine Aminotransfer ALT/SGPT 118 U/L (16-61); Albumin, Serum 2.2 g/dL (3.2-5.0); Alkaline Phosphatase 75 U/L (45-117); Anion Gap 8 (5-15); BUN 10 mg/dL (7-18); BUN/Creat Ratio 9.5 RATIO (10-20); Calcium,Total 8.4 mg/dL (8.5-10.1); Chloride 103 mmol/L (98-107); Creatinine, Serum 1.05 mg/dL (0.70-1.30); EST Glomerular Filtration Rate 86 mL/min (>60); Est Glom Filt Rate - Afr Amer 104 mL/min (>60); Estimated Creatinine Clearance 113.09 ml/min; Globulin 4.3 g/dL (2.2-4.2); Glucose 118 mg/dL (74-106); Protein, Total 6.5 g/dL (6.4-8.2); Sodium Level 137 mmol/L (136-145)
[2017-11-25 06:18] LABS: Absolute Lymphocyte Count 1.24 X10^3/ul (0.83-4.51); Absolute Neutrophil Count 9.7 X10^3/uL (2.0-7.7); Basophil# 0.04 X10^3/uL; Basophil% 0.3 % (0-1); Eosinophils% 0.8 % (0-5); Hematocrit 40.2 % (40-54); Hemoglobin 13.9 g/dl (13.0-16.5); Lymphocyte # 1.24 X10^3/ul (4.0); Lymphocyte % 10.1 % (19-41); Mean Corp Hgb Conc 34.6 g/gl (32-36); Mean Corpuscular Hgb 28.7 pg (27.0-32.0); Mean Corpuscular Volume 83.1 fL (80-94); Mean Platelet Vol. 10.4 fl (6.2-12.0); Monocyte# 0.99 X10^3/uL; Monocyte% 8.1 % (0-10); Neutrophil # 9.72 X10^3/uL (2.7-7.7); Neutrophil % 79.3 % (47-70); Platelet Count 298 K/mm3 (150-450); RBC Distribution Width SD 41.9 fl (35.1-43.9); Red Blood Count 4.84 M/mm3 (4.6-6.2); White Blood Count 12.3 K/mm3 (4.4-11.0)
[2017-11-25 06:21] LABS: POSITIVE COUNT NO; POSITIVE DIFFERENTIAL NO; POSITIVE MORPHOLOGY NO
[2017-11-25 07:00] LABS: Bedside Glucose 119 mg/dL (70-110)
[2017-11-25] MEDS: HYDROcodone Bitartrate/Apap 5/325 Tablet PO ×2 (08:12→20:49)
--- NOTE | 2017-11-25 08:20 | NURSING ---
Patient found ambulating back from bathroom at this time. Continuous pulse ox hooked back up and spO2 85% on room air. 2L nasal cannula placed on patient. Saturations 92% on 2L resting. Patient noted to desat to around 88% when coughing. Incentive spirometer education reinforced. Patient also encouraged to wear O2 at rest and with ambulating. Denies shortness of breath. Lungs clear on assessment. Will notify Dr. Sanches.
[2017-11-25] MEDS: 0.9% NaCl Peripheral Flush Adult/Peds IV ×4 (08:40→22:22)
--- NOTE | 2017-11-25 08:48 | RAD_ITS ---
STUDY: X-RAY CHEST REASON FOR EXAM: Male, 32 years old. Hypoxia, short of breath and dyspnea. TECHNIQUE: Frontal and lateral views of the chest. COMPARISON: November 22, 2017. FINDINGS: There is been interval progression of multifocal bilateral patchy alveolar opacification. Now the apices only appear moderately spared. There is no pleural effusion. There is no pneumothorax. Normal size heart. Normal mediastinum and vivek. Normal visualized pulmonary arteries. Normal visualized aortic arch and descending thoracic aorta. Normal visualized thoracic spine. Normal visualized ribs, clavicles, and shoulders. There is no demonstrated abnormality of the visualized soft tissue structures of the upper abdomen. RAD/Chest PA and Lateral IMPRESSION: Worsening of alveolar opacifications consistent with a pneumonitis versus edema. No central vascular congestion. No pleural effusion. No pneumothorax. The cardiomediastinal silhouette appears unremarkable. Electronically Signed: Patrice Tejeda MD at 9:13 EDT , Service support ,
--- NOTE | 2017-11-25 10:16 | CASEMGMT ---
Social Work SW met with pt in room to discuss with pt new diagnoses of diabetes. Pt is aware of new dx and states he realizes his diet will need to change. SW attempted to talk with pt regarding concerns or feelings surrounding new diagnoses. Pt displaying limited concern about medical changes. SW encouraged pt to speak with his physician and nurse regarding questions surrounding medical issues. Pt plans to return home and states he has support system at home. CARLITA Guzman CM updated on need for pt education. ERNESTO Mendez
[2017-11-25] MEDS: levoFLOXacin IV 750 MG/150 ML BAG 100 MG IV (10:23)
--- NOTE | 2017-11-25 11:12 | PCM.CONS.GEN ---
Problem List (1) CAP (community acquired pneumonia) Status: Acute (2) Sepsis Status: Acute (3) KATIE (acute kidney injury) Status: Acute (4) Hyponatremia Status: Acute Reason for Consult Date of Consultation: 11/25/17 Reason for Consultation: legionella pneumonia, worsening CXR History of Present Illness: The patient is a 32 year old M with no past medical history, presented to the ED on 11/22/17 with complaints of a 4 day history of high fevers and chills, productive cough of yellow to green sputum with bright red blood from Thursday thru Thursday (resolved after arrival to [facility]). Also with shortness of breath and wheezing. Patient also complained of abdominal pain, severe nausea and vomiting for approximately 7-10 days and anorexia. He was unable to keep anything down. He did have some diarrhea at home. Denies any recent sick contacts. No recent antibiotics or steroids. Denies swallowing difficulties. No history of cancer. Initial chest x-ray 11/22 showed right upper lobe and perihilar patchy opacities, possible pneumonia and/or edema. Neoplastic process not ruled out. Liver ultrasound showed prominent size but no significant abnormalities. No gallbladder abnormalities or biliary ductal dilatation. EKG sinus tachycardia with nonspecific T-wave abnormality, rate 120 bpm. Repeat chest x-ray was obtained on 11/25 and showed worsening of alveolar opacifications consistent with a pneumonitis versus edema. No central vascular congestion or pleural effusion. Blood culture showed no growth in 48 hours. Influenza screening negative. Urine culture exhibited no growth, however urine Strep/Legionella antigens were positive for Legionella. C. difficile was negative. Blood work showed initial white count of 22,200, which has improved to 12,300. Immature granulocytes are elevated and ANC was 19.7. Chemistry remarkable for a sodium of 131, BUN 13 and creatinine 1.61. This has improved and renal function is now normal. Lactate was normal. A1c is elevated at 6.7. AST and ALT have been consistently elevated. Urinalysis was positive for infection. Toxicology screen positive for opiates and cannabinoids. Hepatitis panel was normal. Patient was given IV Levaquin, Toradol, Zofran and Tylenol, as well as IV fluid resuscitation. Patient reports no prior history of pulmonary disease. He has never been on any inhalers. He is a smoker about a half pack a day for the last 10 years. He denies any alcohol or illicit drug use, with the exception of cannabis. No history of exposure to TB, asbestos, or other toxins. Lives alone. Patient reports his cough has been persistent while in the hospital with occasional sputum production that is clear. He does have some wheezing and chest tightness. He was placed on Robitussin which is helping his cough, however briefly. His dyspnea has improved and loose stools have pretty much resolved. His main complaint today is his cough with exertion and intermittent hiccups. Past Medical History Allergies No Known Allergies Allergy (Verified 11/22/17 19:54) Home Medications: Ambulatory Orders Medication Instructions Recorded NK [NK] 11/22/17 Surgical History: - - Right tib-fib fracture repair Psychiatric History: No pertinent psych hx Lives: Alone Smoking Status: Current every day smoker Tobacco Use: Cigarettes - 5-pack-year history Alcohol: None Drugs: None - *Family History Maternal History Items: No pertinent history Review of Systems Constitutional: Reports: Chills - Soft, Fever, Weakness, Fatigue. Denies: Anorexia, Night Sweats Eyes: Denies: Vision Change HEENT: Denies: Difficulty Swallowing, Nasal bleeding, Nasal Congestion, Post Nasal Drip, Sinus Drainage, Sore Throat Cardiovascular: Reports: Chest Tightness, Palpitations. Denies: Chest Pain, Edema, Light Headedness, Orthopnea, Paroxysmal Noc. Dyspnea, Syncope Respiratory: Reports: Cough Patient Problems: Active and Suspected Problems CAP (community acquired pneumonia) (Acute) Sepsis (Acute) KATIE (acute kidney injury) (Acute) Hyponatremia (Acute) Subjective: The patient was seen and examined. He was coughing throughout my interview. He did not bring up any sputum at that time. Reports he has been requiring some oxygen supplementation today. He was on room air and desaturated to 86% with a coughing fit. Denies any current nausea, vomiting, or diarrhea. Objective: Clinical Impression(s) from Imaging Studies Chest X-Ray 11/22/17 20:18 IMPRESSION: Right upper lobe and perihilar patchy opacities likely reflect some combination of pneumonia and/or edema, cannot exclude underlying neoplastic process. Recommend a CT or short interval follow-up chest radiograph in 6-8 weeks. Electronically Signed: Bibiana Figueroa MD at 21:06 EDT Tel , Service support , Liver Ultrasound 11/24/17 10:22 IMPRESSION: The liver is prominent in size but shows no significant abnormal echotexture or evidence of masses. No abnormalities are seen in the gallbladder. There is no biliary ductal dilatation. Electronically Signed: Sheryl Granger MD at 17:40 EDT Tel Direct: [phone], Service support , Chest X-Ray 11/25/17 08:48 IMPRESSION: Worsening of alveolar opacifications consistent with a pneumonitis versus edema. No central vascular congestion. No pleural effusion. No pneumothorax. The cardiomediastinal silhouette appears unremarkable. Electronically Signed: Patrice Tejeda MD at 9:13 EDT , Service support , - Physical Exam General: Alert, Oriented x3, Cooperative, - - Coughing frequently HEENT: Atraumatic, Normocephalic Oral: Moist Mucosa Neck: Supple, No Nodes, Trachea Midline Lungs: No rhonchi, No wheeze, No rales, Diminished, - - Poor inspiratory effort secondary to inducing cough Cardiovascular: Regular Rhythm, Normal S1, Normal S2, No murmurs, No rub noted, No Gallop, Tachycardic Abdomen: Bowel Sounds Present, Soft, Non Tender, Non-Distended, Obese Extremities: No clubbing, No cyanosis, No edema Skin: No rashes, No breakdown Musculoskeletal: No Tenderness to Palpation of Joints or Extremities Lymphatic: No Cervical, Supraclavicular, or Inguinal Adenopathy Neurological: Cranial nerves II-XII grossly intact, Neuro grossly intact, Motor Exam 5/5 strength throughout Psych/Mental Status: Alert and oriented to time, place, person, mood and affect Vital Signs Temp Pulse Resp BP Pulse Ox 98.5 F 67 16 147/91 H 92 11/25/17 10:20 11/25/17 10:20 11/25/17 10:20 11/25/17 10:20 11/25/17 10:20 Oxygen Flow Rate (L/min) 2 Oxygen Delivery Method Room Air Weight: 263 lb 7.238 oz Body Mass Index (BMI) 34.7 Intake and Output for Last 24 Hours 11/23/17 11/24/17 11/25/17 23:59 23:59 23:59 Intake Total 4864 / 4864 5190 / 5190 781 / 781 Output Total 1075 / 1075 550 / 550 Balance 3789 / 3789 4640 / 4640 781 / 781 Microbiology Past 72 Hours 11/23/17 07:29 Urine Culture - Preliminary Urine, Clean Catch Culture exhibits no growth. 11/23/17 08:10 C. difficile DNA Amplification - Final Stool 11/23/17 07:29 Streptococcus pneumoniae Antigen (M - Final Urine, Clean Catch 11/23/17 07:29 Legionella Antigen - Final Urine, Clean Catch Legionella Antigen Laboratory Tests Past 24 Hrs 11/24/17 11/25/17 11/25/17 10:35 05:40 05:40 WBC 12.3 H RBC 4.84 Hgb 13.9 Hct 40.2 MCV 83.1 MCH 28.7 MCHC 34.6 RDW 14.0 RDW Differential 41.9 Plt Count 298 MPV 10.4 Immature Gran % (Auto) 1.400 H Neut % (Auto) 79.3 H Lymph % (Auto) 10.1 L Pope % (Auto) 8.1 Eos % (Auto) 0.8 Baso % (Auto) 0.3 Absolute Neuts (auto) 9.7 H Absolute Lymphs (auto) 1.24 Total Counted Not Reportable Sodium 137 Potassium 4.0 Chloride 103 Carbon Dioxide 26.0 Anion Gap 8 BUN 10 Creatinine 1.05 Estim Creat Clear Calc 113.09 Est GFR (MDRD) Af Amer 104 Est GFR (MDRD) Non-Af 86 BUN/Creatinine Ratio 9.5 L Glucose 118 H Lactic Acid 1.2 Calcium 8.4 L Total Bilirubin 0.30 AST 260 H ALT 118 H Alkaline Phosphatase 75 Total Protein 6.5 Albumin 2.2 L Globulin 4.3 H Albumin/Globulin Ratio 0.5 L POC Glucose 11/25/17 11/24/17 11/24/17 06:54 21:11 16:07 POC Glucose 119 H 130 H 125 H 11/24/17 11:20 POC Glucose 127 H Assessment/Plan Active and Suspected Problems CAP (community acquired pneumonia) (Acute) Sepsis (Acute) KATIE (acute kidney injury) (Acute) Hyponatremia (Acute) RECOMMENDATIONS 1. Oxygen supplementation to keep saturations greater than 90% 2. Encourage incentive spirometer/Acapella 3. Increase activity as tolerated, mobilize 4. Continue bronchodilators, antibiotics, Robitussin, antiemetics 5. Obtain sputum culture 6. Check a BNP 7. Continue DVT prophylaxis 8. Await ID consultation 9. Ambulatory pulse ox prior to discharge IMPRESSIONS 1. Sepsis secondary to CAP and acute UTI with Legionella Patient still with intermittent fevers and tachycardia. He is requiring intermittent oxygen supplementation of 2 L, especially with coughing fits. His chest x-ray today showed interval progression of multifocal bilateral patchy or lower opacifications, no pleural effusion. However, reports overall he feels better. His dyspnea and loose stools have improved. Robitussin is helping with his coughing fits, however only lasts short amount of time. Continue bronchodilators, antibiotics, antiemetics, Robitussin. Check a BNP and sputum culture. Tylenol for fevers. Patient will require an ambulatory pulse ox prior to discharge. ID is following. 2. KATIE and hyponatremia Resolved with fluid resuscitation. No indication for renal replacement therapy at this time. Continue to monitor. 3. Tobacco abuse/drug abuse Patient with 5 pk-yr history smoking intermittently. Denies need for nicotine patch. Encouraged smoking cessation. Admits to cannabis use but no other drug use despite + urine tox screen in ED (opiates and cannabis). Encouraged ongoing smoking cessation. Thank you for the opportunity to participate in this patient's care, please do not hesitate contact us with any further questions or concerns. This note was generated with [employer] dictation software. It may contain incorrect words, spelling, and punctuation that were not noted in checking the note before signing.
--- NOTE | 2017-11-25 11:25 | CON.PCM_ITS ---
Problem List (1) CAP (community acquired pneumonia) Status: Acute (2) Sepsis Status: Acute (3) KATIE (acute kidney injury) Status: Acute (4) Hyponatremia Status: Acute Reason for Consult Date of Consultation: 11/25/17 Reason for Consultation: legionella pneumonia, worsening CXR History of Present Illness: The patient is a 32 year old M with no past medical history, presented to the ED on 11/22/17 with complaints of a 4 day history of high fevers and chills, productive cough of yellow to green sputum with bright red blood from Thursday thru Thursday (resolved after arrival to [facility]). Also with shortness of breath and wheezing. Patient also complained of abdominal pain, severe nausea and vomiting for approximately 7-10 days and anorexia. He was unable to keep anything down. He did have some diarrhea at home. Denies any recent sick contacts. No recent antibiotics or steroids. Denies swallowing difficulties. No history of cancer. Initial chest x-ray 11/22 showed right upper lobe and perihilar patchy opacities , possible pneumonia and/or edema. Neoplastic process not ruled out. Liver ultrasound showed prominent size but no significant abnormalities. No gallbladder abnormalities or biliary ductal dilatation. EKG sinus tachycardia with nonspecific T-wave abnormality, rate 120 bpm. Repeat chest x-ray was obtained on 11/25 and showed worsening of alveolar opacifications consistent with a pneumonitis versus edema. No central vascular congestion or pleural effusion. Blood culture showed no growth in 48 hours. Influenza screening negative. Urine culture exhibited no growth, however urine Strep/Legionella antigens were positive for Legionella. C. difficile was negative. Blood work showed initial white count of 22,200, which has improved to 12,300. Immature granulocytes are elevated and ANC was 19.7. Chemistry remarkable for a sodium of 131, BUN 13 and creatinine 1.61. This has improved and renal function is now normal. Lactate was normal. A1c is elevated at 6.7. AST and ALT have been consistently elevated. Urinalysis was positive for infection. Toxicology screen positive for opiates and cannabinoids. Hepatitis panel was normal. Patient was given IV Levaquin, Toradol, Zofran and Tylenol, as well as IV fluid resuscitation. Patient reports no prior history of pulmonary disease. He has never been on any inhalers. He is a smoker about a half pack a day for the last 10 years. He denies any alcohol or illicit drug use, with the exception of cannabis. No history of exposure to TB, asbestos, or other toxins. Lives alone. Patient reports his cough has been persistent while in the hospital with occasional sputum production that is clear. He does have some wheezing and chest tightness. He was placed on Robitussin which is helping his cough, however briefly. His dyspnea has improved and loose stools have pretty much resolved. His main complaint today is his cough with exertion and intermittent hiccups. Past Medical History Allergies No Known Allergies Allergy (Verified 11/22/17 19:54) Home Medications: Ambulatory Orders Medication Instructions Recorded NK [NK] 11/22/17 Surgical History: - - Right tib-fib fracture repair Psychiatric History: No pertinent psych hx Lives: Alone Smoking Status: Current every day smoker Tobacco Use: Cigarettes - 5-pack-year history Alcohol: None Drugs: None - *Family History Maternal History Items: No pertinent history Review of Systems Constitutional: Reports: Chills - Soft, Fever, Weakness, Fatigue. Denies: Anorexia, Night Sweats Eyes: Denies: Vision Change HEENT: Denies: Difficulty Swallowing, Nasal bleeding, Nasal Congestion, Post Nasal Drip, Sinus Drainage, Sore Throat Cardiovascular: Reports: Chest Tightness, Palpitations. Denies: Chest Pain, Edema, Light Headedness, Orthopnea, Paroxysmal Noc. Dyspnea, Syncope Respiratory: Reports: Cough Patient Problems: Active and Suspected Problems CAP (community acquired pneumonia) (Acute) Sepsis (Acute) KATIE (acute kidney injury) (Acute) Hyponatremia (Acute) Subjective: The patient was seen and examined. He was coughing throughout my interview. He did not bring up any sputum at that time. Reports he has been requiring some oxygen supplementation today. He was on room air and desaturated to 86% with a coughing fit. Denies any current nausea, vomiting, or diarrhea. Objective: Clinical Impression(s) from Imaging Studies Chest X-Ray 11/22/17 20:18 IMPRESSION: Right upper lobe and perihilar patchy opacities likely reflect some combination of pneumonia and/or edema, cannot exclude underlying neoplastic process. Recommend a CT or short interval follow-up chest radiograph in 6-8 weeks. Electronically Signed: Bibiana Figueroa MD at 21:06 EDT Tel , Service support , Liver Ultrasound 11/24/17 10:22 IMPRESSION: The liver is prominent in size but shows no significant abnormal echotexture or evidence of masses. No abnormalities are seen in the gallbladder. There is no biliary ductal dilatation. Electronically Signed: Sheryl Granger MD at 17:40 EDT Tel Direct: [phone], Service support , Chest X-Ray 11/25/17 08:48 IMPRESSION: Worsening of alveolar opacifications consistent with a pneumonitis versus edema. No central vascular congestion. No pleural effusion. No pneumothorax. The cardiomediastinal silhouette appears unremarkable. Electronically Signed: Patrice Tejeda MD at 9:13 EDT , Service support , - Physical Exam General: Alert, Oriented x3, Cooperative, - - Coughing frequently HEENT: Atraumatic, Normocephalic Oral: Moist Mucosa Neck: Supple, No Nodes, Trachea Midline Lungs: No rhonchi, No wheeze, No rales, Diminished, - - Poor inspiratory effort secondary to inducing cough Cardiovascular: Regular Rhythm, Normal S1, Normal S2, No murmurs, No rub noted, No Gallop, Tachycardic Abdomen: Bowel Sounds Present, Soft, Non Tender, Non-Distended, Obese Extremities: No clubbing, No cyanosis, No edema Skin: No rashes, No breakdown Musculoskeletal: No Tenderness to Palpation of Joints or Extremities Lymphatic: No Cervical, Supraclavicular, or Inguinal Adenopathy Neurological: Cranial nerves II-XII grossly intact, Neuro grossly intact, Motor Exam 5/5 strength throughout Psych/Mental Status: Alert and oriented to time, place, person, mood and affect Vital Signs Temp Pulse Resp BP Pulse Ox 98.5 F 67 16 147/91 H 92 11/25/17 10:20 11/25/17 10:20 11/25/17 10:20 11/25/17 10:20 11/25/17 10:20 Oxygen Flow Rate (L/min) 2 Oxygen Delivery Method Room Air Weight: 263 lb 7.238 oz Body Mass Index (BMI) 34.7 Intake and Output for Last 24 Hours 11/23/17 11/24/17 11/25/17 23:59 23:59 23:59 Intake Total 4864 / 4864 5190 / 5190 781 / 781 Output Total 1075 / 1075 550 / 550 Balance 3789 / 3789 4640 / 4640 781 / 781 Microbiology Past 72 Hours 11/23/17 07:29 Urine Culture - Preliminary Urine, Clean Catch Culture exhibits no growth. 11/23/17 08:10 C. difficile DNA Amplification - Final Stool 11/23/17 07:29 Streptococcus pneumoniae Antigen (M - Final Urine, Clean Catch 11/23/17 07:29 Legionella Antigen - Final Urine, Clean Catch Legionella Antigen Laboratory Tests Past 24 Hrs 11/24/17 11/25/17 11/25/17 10:35 05:40 05:40 WBC 12.3 H RBC 4.84 Hgb 13.9 Hct 40.2 MCV 83.1 MCH 28.7 MCHC 34.6 RDW 14.0 RDW Differential 41.9 Plt Count 298 MPV 10.4 Immature Gran % (Auto) 1.400 H Neut % (Auto) 79.3 H Lymph % (Auto) 10.1 L [place] % (Auto) 8.1 Eos % (Auto) 0.8 Baso % (Auto) 0.3 Absolute Neuts (auto) 9.7 H Absolute Lymphs (auto) 1.24 Total Counted Not Reportable Sodium 137 Potassium 4.0 Chloride 103 Carbon Dioxide 26.0 Anion Gap 8 BUN 10 Creatinine 1.05 Estim Creat Clear Calc 113.09 Est GFR (MDRD) Af Amer 104 Est GFR (MDRD) Non-Af 86 BUN/Creatinine Ratio 9.5 L Glucose 118 H Lactic Acid 1.2 Calcium 8.4 L Total Bilirubin 0.30 AST 260 H ALT 118 H Alkaline Phosphatase 75 Total Protein 6.5 Albumin 2.2 L Globulin 4.3 H Albumin/Globulin Ratio 0.5 L POC Glucose 11/25/17 11/24/17 11/24/17 06:54 21:11 16:07 POC Glucose 119 H 130 H 125 H 11/24/17 11:20 POC Glucose 127 H Assessment/Plan Active and Suspected Problems CAP (community acquired pneumonia) (Acute) Sepsis (Acute) KATIE (acute kidney injury) (Acute) Hyponatremia (Acute) RECOMMENDATIONS 1. Oxygen supplementation to keep saturations greater than 90% 2. Encourage incentive spirometer/Acapella 3. Increase activity as tolerated, mobilize 4. Continue bronchodilators, antibiotics, Robitussin, antiemetics 5. Obtain sputum culture 6. Check a BNP 7. Continue DVT prophylaxis 8. Await ID consultation 9. Ambulatory pulse ox prior to discharge IMPRESSIONS 1. Sepsis secondary to CAP and acute UTI with Legionella Patient still with intermittent fevers and tachycardia. He is requiring intermittent oxygen supplementation of 2 L, especially with coughing fits. His chest x-ray today showed interval progression of multifocal bilateral patchy or lower opacifications, no pleural effusion. However, reports overall he feels better. His dyspnea and loose stools have improved. Robitussin is helping with his coughing fits, however only lasts short amount of time. Continue bronchodilators, antibiotics, antiemetics, Robitussin. Check a BNP and sputum culture. Tylenol for fevers. Patient will require an ambulatory pulse ox prior to discharge. ID is following. 2. KATIE and hyponatremia Resolved with fluid resuscitation. No indication for renal replacement therapy at this time. Continue to monitor. 3. Tobacco abuse/drug abuse Patient with 5 pk-yr history smoking intermittently. Denies need for nicotine patch. Encouraged smoking cessation. Admits to cannabis use but no other drug use despite + urine tox screen in ED (opiates and cannabis). Encouraged ongoing smoking cessation. Thank you for the opportunity to participate in this patient's care, please do not hesitate contact us with any further questions or concerns. This note was generated with [employer] dictation software. It may contain incorrect words, spelling, and punctuation that were not noted in checking the note before signing.
[2017-11-25 12:00] LABS: Bedside Glucose 122 mg/dL (70-110)
--- NOTE | 2017-11-25 12:04 | PCM.PN.HOSP ---
Patient Problems: Active and Suspected Problems CAP (community acquired pneumonia) (Acute) Sepsis (Acute) KATIE (acute kidney injury) (Acute) Hyponatremia (Acute) Subjective: Patient notes feeling improved but does still have coughing fits. Reviewed with nursing patient has been having desaturations into the 80s even at rest. Repeat film this morning given desaturations with worsening alveolar opacifications consistent with pneumonitis versus edema although no central vascular congestion noted, no pleural effusions, no pneumothorax. He does continue to have intermittent fevers and tachycardia. Patient denies fevers, chills, nausea, emesis, abdominal pain, chest pain or worsened dyspnea. Objective: Physical Examination: General: awake, alert, oriented x 3 and cooperative, seated upright in bed in no apparent distress, oxygenation does decrease occasionally into 80s while examining. Skin: normal color, turgor, no icterus, cyanosis. HEENT: AT/NC, EOMI, PERRLA, improved less dry MM. Lungs: Diminished BL, > bases, decreased effort, no rales, ronchi or wheezing. Heart: Mildly tachycardic with regular rhythm; no gallop, rub audible. Abdomen: soft, obese, NTTP, ND, normal BS. Extremities: no cyanosis, clubbing, or edema. Neurological: patient awake, alert, oriented x 3; cognitive function intact; pupils equally reactive to light and accomodation; cranial nerves II-XII grossly normal, moving all 4 extremities, no focal deficits, strength mildly to moderately globally decreased. Psychiatric: affect appears normal, no acute evidence of depressive or anxiety feelings. Vitals/I&O's: Vital Signs Temp Pulse Resp BP Pulse Ox 98.5 F 67 16 147/91 H 92 11/25/17 10:20 11/25/17 10:20 11/25/17 10:20 11/25/17 10:20 11/25/17 10:20 Oxygen Flow Rate (L/min) 2 Oxygen Delivery Method Room Air Weight: 263 lb 7.238 oz Body Mass Index (BMI) 34.7 Intake and Output for Last 24 Hours 11/23/17 11/24/17 11/25/17 23:59 23:59 23:59 Intake Total 4864 / 4864 5190 / 5190 2065 Output Total 1075 / 1075 550 / 550 Balance 3789 / 3789 4640 / 4640 2065 Microbiology Past 72 Hours 11/23/17 07:29 Urine, Clean Catch Urine Culture - Preliminary Culture exhibits no growth. 11/23/17 08:10 Stool C. difficile DNA Amplification - Final 11/23/17 07:29 Urine, Clean Catch Streptococcus pneumoniae Antigen (M - Final 11/23/17 07:29 Urine, Clean Catch Legionella Antigen - Final Legionella Antigen Laboratory Results 11/24/17 16:07: POC Glucose 125 H 11/24/17 21:11: POC Glucose 130 H 11/25/17 05:40: WBC 12.3 H, RBC 4.84, Hgb 13.9, Hct 40.2, MCV 83.1, MCH 28.7, MCHC 34.6, RDW 14.0, RDW Differential 41.9, Plt Count 298, MPV 10.4, Immature Gran % (Auto) 1.400 H, Neut % (Auto) 79.3 H, Lymph % (Auto) 10.1 L, [place] % (Auto) 8.1, Eos % (Auto) 0.8, Baso % (Auto) 0.3, Absolute Neuts (auto) 9.7 H, Absolute Lymphs (auto) 1.24, Total Counted Not Reportable 11/25/17 05:40: Sodium 137, Potassium 4.0, Chloride 103, Carbon Dioxide 26.0, Anion Gap 8, BUN 10, Creatinine 1.05, Estim Creat Clear Calc 113.09, Est GFR (MDRD) Af Amer 104, Est GFR (MDRD) Non-Af 86, BUN/Creatinine Ratio 9.5 L, Glucose 118 H, Calcium 8.4 L, Total Bilirubin 0.30, AST 260 H, ALT 118 H, Alkaline Phosphatase 75, Total Protein 6.5, Albumin 2.2 L, Globulin 4.3 H, Albumin/Globulin Ratio 0.5 L 11/25/17 06:54: POC Glucose 119 H 11/25/17 11:32: POC Glucose 122 H Current Medications Acetaminophen (Tylenol) 650 mg PO Q4H PRN PRN PRN Reason: fever, pain Last Admin: 11/24/17 16:09 Dose: 650 mg Hydrocodone Bitart/Acetaminophen ([place] 5mg-325mg) 1 - 2 tablet PO Q6H PRN PRN PRN Reason: Moderate-severe pain Last Admin: 11/25/17 08:12 Dose: 2 tablet Dextrose (D50w Syringe) 0 gm IV X1 PRN; Protocol PRN Reason: Hypoglycemia Glucagon () 1 mg IM .X1 PRN PRN Reason: Hypoglycemia Guaifenesin (Robitussin Dm) 5 ml PO Q6H PRN PRN PRN Reason: COUGH Last Admin: 11/25/17 05:26 Dose: 5 ml Heparin Sodium (Porcine) (Heparin Na) 5,000 unit SC Q8 [facility] Last Admin: 11/25/17 05:26 Dose: 5,000 u Hydralazine HCl (Apresoline Iv) 10 mg IV Q4H PRN PRN PRN Reason: SBP > 160 Last Admin: 11/23/17 08:17 Dose: 10 mg Levofloxacin (Levaquin Iv) 750 mg in 150 mls @ 100 mls/hr IV Q24 [facility] Stop: 12/05/17 11:29 Last Admin: 11/25/17 10:23 Dose: 100 mls/hr Famotidine (Pepcid 20mg) 20 mg in 50 mls @ 150 mls/hr IV Q12 [facility] Last Admin: 11/25/17 09:43 Dose: 150 mls/hr Insulin Aspart (Novolog Flexpen (Bkc)) 0 units SC ACHS JOVANNI PRN Reason: Protocol Last Admin: 11/25/17 11:34 Dose: Not Given Nutritional Formula (Lactose Free) (Ensure Clear) 120 ml PO TIDCM [facility] Last Admin: 11/25/17 11:35 Dose: Not Given Ondansetron HCl (Zofran) 4 mg IV Q8H PRN PRN PRN Reason: NAUSEA/VOMITING Last Admin: 11/25/17 09:38 Dose: 4 mg Prochlorperazine Edisylate (Compazine Iv) 5 mg IV Q4H PRN PRN PRN Reason: NAUSEA/VOMITING Last Admin: 11/23/17 03:28 Dose: 5 mg Promethazine HCl (Phenergan) 12.5 mg IV Q4H PRN PRN PRN Reason: NAUSEA/VOMITING Last Admin: 11/25/17 05:26 Dose: 12.5 mg Sodium Chloride () 5 - 30 ml IV UD PRN PRN Reason: SALINE FLUSH Last Admin: 11/25/17 09:40 Dose: 10 ml Temazepam (Restoril) 15 mg PO QHS PRN PRN PRN Reason: insomnia Throat Lozenges (Cepacol Sore Throat Lozenge) 1 lozenge MUCOUS MEM Q2H PRN PRN PRN Reason: cough, sore throat Last Admin: 11/25/17 08:17 Dose: 1 lozenge Medical Necessity - Tobacco Use Smoking Status: Current every day smoker Tobacco Use: Cigarettes Assessment/Plan Active and Suspected Problems CAP (community acquired pneumonia) (Acute) Sepsis (Acute) KATIE (acute kidney injury) (Acute) Hyponatremia (Acute) The patient is a 32 y/o M w/ PMHx: Obesity who presents to the [facility] ED on 11/22/17 with history of ongoing progressively worsening dyspnea, productive cough, fever, nausea and emesis x 5 days. (1) Acute Sepsis secondary to Acute Legionella Pneumonia and Acute UTI: CXR in the ED w/ right upper lobe and perihilar patchy opacities. Admission CBC w/ WBC 22.2 with left shift. Admitted to telemetry, maintained on oxygen with wean as tolerated to room air, continue ATC duonebs, PRN albuterol, maintained on IV Rocephin and Azithromycin-->transitioned 11/23/17 back to Levaquin (duration x 10-14 days) given + legionella antigen, HOB, IS parameters w/ pending sputum cultures, urine antigens w/ + legionella antigen as noted. Bld cx x 2 obtained in the ED with NGTD. LA 1.7-->1.4 repeat w/ 11/24/17 repeat 1.2. Infectious control contacted and will interview patient for risk factors. C. difficile assay negative, likely secondary to acute Legionella infection given this may also cause GI side effects in addition to pneumonia presentation. Onset 09/27/17 AM hypoxia, intermittently, mid-high 80s, worsened CXR w/ worsening alveolar opacifications consistent with pneumonitis versus edema, no central vascular congestion, no pleural effusion, no pneumothorax. 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 11/25/17 CBC w/ WBC 12.3 with L shift. (2) Acute kidney injury: Secondary to #1, poor intake and GI losses w/ N/V. Admission BUN/Cr 13/1.61, prior baseline creatinine reported normal, hydrated, repeat 11/24/17 BUN/Cr 11/1.30-->11/25/17 BUN/Cr 10/1.05, resolved. (3) Hyponatremia, Hypovolemic: Secondary to #2, poor intake and GI losses, KATIE as noted, admission Na 131, 11/24/17 improving, Na 135-->11/25/17 Na 137. (4) New Diagnosis w/ Diabetes mellitus type II, Hyperglycemia: Admission glucose 166, HgbA1c 6.7%, maintained on ISS, accu checks, nutrition consultation for education, plan addition metformin upon discharge. (5) Obesity: Weight loss and lifestyle changes encouraged, nutrition consulted for education and teaching. (6) Elevated LFTs: Admission AST/ALT 95/60, possible secondary to acute persentation/dehydration as noted, repeat CMP increased, 11/24/17 AST/ALT 291/100-->11/25/17 AST/ALT 260/118, liver US obtained w/ liver prominent in size but no significant abnormal echotexture or evidence of masses, normal-appearing gallbladder, no biliary ductal dilation. Hepatitis panel unremarkable, HIV negative. (7) Polysubstance Abuse: UDS + opiates and cannabis, only admits to cannabis usage despite UDS review and notes last 4 weeks prior despite current positive testing. HIV, hepatitis panels both unremarkable. (8) Tobacco Abuse: Encouraged cessation, inpatient consultation per RT, NR if desired, notes ongoing 1/2 ppd tobacco use. (9) DVT Prophylaxis: SCDs, heparin. Code Visit Inpatient E&M: 09692 Subs Hosp L3
--- NOTE | 2017-11-25 12:13 | PN_ITS ---
Patient Problems: Active and Suspected Problems CAP (community acquired pneumonia) (Acute) Sepsis (Acute) KATIE (acute kidney injury) (Acute) Hyponatremia (Acute) Subjective: Patient notes feeling improved but does still have coughing fits. Reviewed with nursing patient has been having desaturations into the 80s even at rest. Repeat film this morning given desaturations with worsening alveolar opacifications consistent with pneumonitis versus edema although no central vascular congestion noted, no pleural effusions, no pneumothorax. He does continue to have intermittent fevers and tachycardia. Patient denies fevers, chills, nausea, emesis, abdominal pain, chest pain or worsened dyspnea. Objective: Physical Examination: General: awake, alert, oriented x 3 and cooperative, seated upright in bed in no apparent distress, oxygenation does decrease occasionally into 80s while examining. Skin: normal color, turgor, no icterus, cyanosis. HEENT: AT/NC, EOMI, PERRLA, improved less dry MM. Lungs: Diminished BL, > bases, decreased effort, no rales, ronchi or wheezing. Heart: Mildly tachycardic with regular rhythm; no gallop, rub audible. Abdomen: soft, obese, NTTP, ND, normal BS. Extremities: no cyanosis, clubbing, or edema. Neurological: patient awake, alert, oriented x 3; cognitive function intact; pupils equally reactive to light and accomodation; cranial nerves II-XII grossly normal, moving all 4 extremities, no focal deficits, strength mildly to moderately globally decreased. Psychiatric: affect appears normal, no acute evidence of depressive or anxiety feelings. Vitals/I&O's: Vital Signs Temp Pulse Resp BP Pulse Ox 98.5 F 67 16 147/91 H 92 11/25/17 10:20 11/25/17 10:20 11/25/17 10:20 11/25/17 10:20 11/25/17 10:20 Oxygen Flow Rate (L/min) 2 Oxygen Delivery Method Room Air Weight: 263 lb 7.238 oz Body Mass Index (BMI) 34.7 Intake and Output for Last 24 Hours 11/23/17 11/24/17 11/25/17 23:59 23:59 23:59 Intake Total 4864 / 4864 5190 / 5190 2065 Output Total 1075 / 1075 550 / 550 Balance 3789 / 3789 4640 / 4640 2065 Microbiology Past 72 Hours 11/23/17 07:29 Urine, Clean Catch Urine Culture - Preliminary Culture exhibits no growth. 11/23/17 08:10 Stool C. difficile DNA Amplification - Final 11/23/17 07:29 Urine, Clean Catch Streptococcus pneumoniae Antigen (M - Final 11/23/17 07:29 Urine, Clean Catch Legionella Antigen - Final Legionella Antigen Laboratory Results 11/24/17 16:07: POC Glucose 125 H 11/24/17 21:11: POC Glucose 130 H 11/25/17 05:40: WBC 12.3 H, RBC 4.84, Hgb 13.9, Hct 40.2, MCV 83.1, MCH 28.7, MCHC 34.6, RDW 14.0, RDW Differential 41.9, Plt Count 298, MPV 10.4, Immature Gran % (Auto) 1.400 H, Neut % (Auto) 79.3 H, Lymph % (Auto) 10.1 L, [place] % (Auto ) 8.1, Eos % (Auto) 0.8, Baso % (Auto) 0.3, Absolute Neuts (auto) 9.7 H, Absolute Lymphs (auto) 1.24, Total Counted Not Reportable 11/25/17 05:40: Sodium 137, Potassium 4.0, Chloride 103, Carbon Dioxide 26.0, Anion Gap 8, BUN 10, Creatinine 1.05, Estim Creat Clear Calc 113.09, Est GFR ( MDRD) Af Amer 104, Est GFR (MDRD) Non-Af 86, BUN/Creatinine Ratio 9.5 L, Glucose 118 H, Calcium 8.4 L, Total Bilirubin 0.30, AST 260 H, ALT 118 H, Alkaline Phosphatase 75, Total Protein 6.5, Albumin 2.2 L, Globulin 4.3 H, Albumin/Globulin Ratio 0.5 L 11/25/17 06:54: POC Glucose 119 H 11/25/17 11:32: POC Glucose 122 H Current Medications Acetaminophen (Tylenol) 650 mg PO Q4H PRN PRN PRN Reason: fever, pain Last Admin: 11/24/17 16:09 Dose: 650 mg Hydrocodone Bitart/Acetaminophen ([place] 5mg-325mg) 1 - 2 tablet PO Q6H PRN PRN PRN Reason: Moderate-severe pain Last Admin: 11/25/17 08:12 Dose: 2 tablet Dextrose (D50w Syringe) 0 gm IV X1 PRN; Protocol PRN Reason: Hypoglycemia Glucagon () 1 mg IM .X1 PRN PRN Reason: Hypoglycemia Guaifenesin (Robitussin Dm) 5 ml PO Q6H PRN PRN PRN Reason: COUGH Last Admin: 11/25/17 05:26 Dose: 5 ml Heparin Sodium (Porcine) (Heparin Na) 5,000 unit SC Q8 [facility] Last Admin: 11/25/17 05:26 Dose: 5,000 u Hydralazine HCl (Apresoline Iv) 10 mg IV Q4H PRN PRN PRN Reason: SBP > 160 Last Admin: 11/23/17 08:17 Dose: 10 mg Levofloxacin (Levaquin Iv) 750 mg in 150 mls @ 100 mls/hr IV Q24 [facility] Stop: 12/05/17 11:29 Last Admin: 11/25/17 10:23 Dose: 100 mls/hr Famotidine (Pepcid 20mg) 20 mg in 50 mls @ 150 mls/hr IV Q12 [facility] Last Admin: 11/25/17 09:43 Dose: 150 mls/hr Insulin Aspart (Novolog Flexpen (Bkc)) 0 units SC ACHS JOVANNI PRN Reason: Protocol Last Admin: 11/25/17 11:34 Dose: Not Given Nutritional Formula (Lactose Free) (Ensure Clear) 120 ml PO TIDCM [facility] Last Admin: 11/25/17 11:35 Dose: Not Given Ondansetron HCl (Zofran) 4 mg IV Q8H PRN PRN PRN Reason: NAUSEA/VOMITING Last Admin: 11/25/17 09:38 Dose: 4 mg Prochlorperazine Edisylate (Compazine Iv) 5 mg IV Q4H PRN PRN PRN Reason: NAUSEA/VOMITING Last Admin: 11/23/17 03:28 Dose: 5 mg Promethazine HCl (Phenergan) 12.5 mg IV Q4H PRN PRN PRN Reason: NAUSEA/VOMITING Last Admin: 11/25/17 05:26 Dose: 12.5 mg Sodium Chloride () 5 - 30 ml IV UD PRN PRN Reason: SALINE FLUSH Last Admin: 11/25/17 09:40 Dose: 10 ml Temazepam (Restoril) 15 mg PO QHS PRN PRN PRN Reason: insomnia Throat Lozenges (Cepacol Sore Throat Lozenge) 1 lozenge MUCOUS MEM Q2H PRN PRN PRN Reason: cough, sore throat Last Admin: 11/25/17 08:17 Dose: 1 lozenge Medical Necessity - Tobacco Use Smoking Status: Current every day smoker Tobacco Use: Cigarettes Assessment/Plan Active and Suspected Problems CAP (community acquired pneumonia) (Acute) Sepsis (Acute) KATIE (acute kidney injury) (Acute) Hyponatremia (Acute) The patient is a 32 y/o M w/ PMHx: Obesity who presents to the [facility] ED on with history of ongoing progressively worsening dyspnea, productive cough, fever, nausea and emesis x 5 days. (1) Acute Sepsis secondary to Acute Legionella Pneumonia and Acute UTI: CXR in the ED w/ right upper lobe and perihilar patchy opacities. Admission CBC w/ WBC 22.2 with left shift. Admitted to telemetry, maintained on oxygen with wean as tolerated to room air, continue ATC duonebs, PRN albuterol, maintained on IV Rocephin and Azithromycin-->transitioned 11/23/17 back to Levaquin (duration x 10 -14 days) given + legionella antigen, HOB, IS parameters w/ pending sputum cultures, urine antigens w/ + legionella antigen as noted. Bld cx x 2 obtained in the ED with NGTD. LA 1.7-->1.4 repeat w/ 11/24/17 repeat 1.2. Infectious control contacted and will interview patient for risk factors. C. difficile assay negative, likely secondary to acute Legionella infection given this may also cause GI side effects in addition to pneumonia presentation. Onset 09/27/17 AM hypoxia, intermittently, mid-high 80s, worsened CXR w/ worsening alveolar opacifications consistent with pneumonitis versus edema, no central vascular congestion, no pleural effusion, no pneumothorax. 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 11/25/17 CBC w/ WBC 12.3 with L shift. (2) Acute kidney injury: Secondary to #1, poor intake and GI losses w/ N/V. Admission BUN/Cr 13/1.61, prior baseline creatinine reported normal, hydrated, repeat 11/24/17 BUN/Cr 11/1.30-->11/25/17 BUN/Cr 10/1.05, resolved. (3) Hyponatremia, Hypovolemic: Secondary to #2, poor intake and GI losses, KATIE as noted, admission Na 131, 11/24/17 improving, Na 135-->11/25/17 Na 137. (4) New Diagnosis w/ Diabetes mellitus type II, Hyperglycemia: Admission glucose 166, HgbA1c 6.7%, maintained on ISS, accu checks, nutrition consultation for education, plan addition metformin upon discharge. (5) Obesity: Weight loss and lifestyle changes encouraged, nutrition consulted for education and teaching. (6) Elevated LFTs: Admission AST/ALT 95/60, possible secondary to acute persentation/dehydration as noted, repeat CMP increased, 11/24/17 AST/ALT 291/100 -->11/25/17 AST/ALT 260/118, liver US obtained w/ liver prominent in size but no significant abnormal echotexture or evidence of masses, normal-appearing gallbladder, no biliary ductal dilation. Hepatitis panel unremarkable, HIV negative. (7) Polysubstance Abuse: UDS + opiates and cannabis, only admits to cannabis usage despite UDS review and notes last 4 weeks prior despite current positive testing. HIV, hepatitis panels both unremarkable. (8) Tobacco Abuse: Encouraged cessation, inpatient consultation per RT, NR if desired, notes ongoing 1/2 ppd tobacco use. (9) DVT Prophylaxis: SCDs, heparin. Code Visit Inpatient E&M: 56416 Subs Hosp L3
--- NOTE | 2017-11-25 12:40 | CON.PCM_ITS ---
Reason for Consult: legionella Consulted by: Dr. Sanches History of Present Illness: The patient is a 32 year old M who presented 11/22 with several days of cough, SOB, n/v/d, fever, and chills. Had went to [facility] ED, sent home with symptomatic treatment. Sx worsened, came to [facility], started on azithro/ceftriaxone , legionella (+), changed to levaquin 11/22. Fever up to 103.1 on admit, wbc 22. Now feeling better, no more fevers, n/v improved. Still requiring some oxygen. No unusual water exposures, but thinks he may have gotten it from tap water at work. No other sick contacts. Full ROS performed and neg except as noted above. - Medical History Surgical History: reviewed Allergies/Adverse Reactions: Allergies No Known Allergies Allergy (Verified 11/22/17 19:54) Home Medications: Ambulatory Orders Medication Instructions Recorded NK [NK] 11/22/17 - Social History SMOKING STATUS:: Current every day smoker Vital Signs Temp Pulse Resp BP Pulse Ox 98.5 F 75 16 147/91 H 92 11/25/17 10:20 11/25/17 12:00 11/25/17 10:20 11/25/17 10:20 11/25/17 10:20 Oxygen Flow Rate (L/min) 2 Oxygen Delivery Method Room Air Weight: 119.5 kg Body Mass Index (BMI) 34.7 Microbiology Past 72 Hours 11/23/17 07:29 Urine Culture - Preliminary Urine, Clean Catch Culture exhibits no growth. 11/23/17 08:10 C. difficile DNA Amplification - Final Stool 11/23/17 07:29 Streptococcus pneumoniae Antigen (M - Final Urine, Clean Catch 11/23/17 07:29 Legionella Antigen - Final Urine, Clean Catch Legionella Antigen Laboratory Tests Past 24 Hrs 11/25/17 11/25/17 11/25/17 05:40 05:40 05:40 WBC 12.3 H RBC 4.84 Hgb 13.9 Hct 40.2 MCV 83.1 MCH 28.7 MCHC 34.6 RDW 14.0 RDW Differential 41.9 Plt Count 298 MPV 10.4 Immature Gran % (Auto) 1.400 H Neut % (Auto) 79.3 H Lymph % (Auto) 10.1 L [place] % (Auto) 8.1 Eos % (Auto) 0.8 Baso % (Auto) 0.3 Absolute Neuts (auto) 9.7 H Absolute Lymphs (auto) 1.24 Total Counted Not Reportable Sodium 137 Potassium 4.0 Chloride 103 Carbon Dioxide 26.0 Anion Gap 8 BUN 10 Creatinine 1.05 Estim Creat Clear Calc 113.09 Est GFR (MDRD) Af Amer 104 Est GFR (MDRD) Non-Af 86 BUN/Creatinine Ratio 9.5 L Glucose 118 H Calcium 8.4 L Total Bilirubin 0.30 AST 260 H ALT 118 H Alkaline Phosphatase 75 B-Natriuretic Peptide Pending Total Protein 6.5 Albumin 2.2 L Globulin 4.3 H Albumin/Globulin Ratio 0.5 L - Other Studies Radiology: [] reviewed Other Studies: [] Route of nutrition/ use of supplements: [] Nutritional Intake: [] IV Site: [] Hess Catheter: [] - Physical Exam General: Alert, Oriented x3, Cooperative, No apparent distress HEENT: Atraumatic, PERRLA, EOMI Neck: Supple, No Nodes Lungs: Clear to auscultation, Normal air movement Cardiovascular: Regular rate, Regular Rhythm Abdomen: Bowel Sounds Present, Soft, Non Tender, Non-Distended Extremities: No edema Skin: No rashes IV Site: Peripheral, without redness Musculoskeletal: No Tenderness to Palpation of Joints or Extremities Neurological: Cranial nerves II-XII grossly intact - Assessment/Plan Antibiotics: [] Assessment/Plan: [] Active and Suspected Problems CAP (community acquired pneumonia) (Acute) Sepsis (Acute) KATIE (acute kidney injury) (Acute) Hyponatremia (Acute) Legionella pneumonia - Fever and wbc much improved. HIV and hep panel neg. Rising LFTs since admit could be related to levaquin. Plan would be for 7-10 days of levaquin 750mg qday, currently day 4. May need to change back to azithro if LFTs do not steadily improve. Thank you, will follow, d/w Dr. Sanches.
[2017-11-25 12:47] LABS: BNP,B-Type NATRIURETIC PEPTIDE 15.3 pg/mL (0-100)
[2017-11-25] MEDS: Acetaminophen 325 MG Tablet 650 MG PO (13:22)
[2017-11-25 16:51] LABS: Bedside Glucose 108 mg/dL (70-110)
[2017-11-25 22:30] LABS: Bedside Glucose 116 mg/dL (70-110)
[2017-11-26] VITALS (9 sets, daily range): BP systolic 145–150; BP diastolic 89–98; PULSE 70–121; RESP 18; TEMP 36.9–37.1; O2SAT 85–94
[2017-11-26] MEDS: Acetaminophen 325 MG Tablet 650 MG PO (01:48)
[2017-11-26] MEDS: proMETHazine 25 MG/ML Syringe 12.5 MG IV (01:49)
[2017-11-26] MEDS: 0.9% NaCl Peripheral Flush Adult/Peds IV ×3 (01:50→09:07)
[2017-11-26] MEDS: guaiFENesin Dm 10 ML UDC 5 ML PO (02:50)
[2017-11-26] MEDS: Heparin Injection (Vial) 5,000 UNIT/ML VIAL 5000 UNIT SC (05:23)
[2017-11-26] MEDS: HYDROcodone Bitartrate/Apap 5/325 Tablet PO (05:27)
[2017-11-26] MEDS: Ondansetron 4 MG/2 ML Vial IV (05:27)
[2017-11-26 05:56] LABS: Absolute Neutrophil Count 9.5 X10^3/uL (2.0-7.7); Basophil# 0.09 X10^3/uL; Basophil% 0.6 % (0-1); Eosinophil# 0.28 X10^3/uL; Hematocrit 37.9 % (40-54); Hemoglobin 13.4 g/dl (13.0-16.5); Lymphocyte % 17.9 % (19-41); Mean Corp Hgb Conc 35.4 g/gl (32-36); Mean Platelet Vol. 9.7 fl (6.2-12.0); Monocyte# 1.27 X10^3/uL; Monocyte% 9.1 % (0-10); Neutrophil # 9.46 X10^3/uL (2.7-7.7); Platelet Count 314 K/mm3 (150-450); RBC Distribution Width CV 13.8 % (11.6-14.6); RBC Distribution Width SD 40.6 fl (35.1-43.9); Red Blood Count 4.62 M/mm3 (4.6-6.2); White Blood Count 13.9 K/mm3 (4.4-11.0)
[2017-11-26 05:57] LABS: Differential Indicated SCAN CRITERIA MET; POSITIVE COUNT YES; POSITIVE DIFFERENTIAL NO; POSITIVE MORPHOLOGY YES
[2017-11-26 06:04] LABS: ALB/GLOB Ratio 0.5 RATIO (0.9-2.4); AST(SGOT) 195 U/L (15-37); Alanine Aminotransfer ALT/SGPT 114 U/L (16-61); Alkaline Phosphatase 97 U/L (45-117); Anion Gap 9 (5-15); BUN 7 mg/dL (7-18); BUN/Creat Ratio 7.9 RATIO (10-20); Calcium,Total 8.2 mg/dL (8.5-10.1); Chloride 105 mmol/L (98-107); Creatinine, Serum 0.88 mg/dL (0.70-1.30); EST Glomerular Filtration Rate 105 mL/min (>60); Est Glom Filt Rate - Afr Amer 127 mL/min (>60); Estimated Creatinine Clearance 134.93 ml/min; Globulin 4.1 g/dL (2.2-4.2); Glucose 106 mg/dL (74-106); Potassium 3.4 mmol/L (3.5-5.1); Protein, Total 6.1 g/dL (6.4-8.2); Sodium Level 139 mmol/L (136-145)
[2017-11-26 07:01] LABS: Bedside Glucose 111 mg/dL (70-110)
--- NOTE | 2017-11-26 08:20 | PCM.PROGNOTE ---
Patient Problems: Active and Suspected Problems CAP (community acquired pneumonia) (Acute) Sepsis (Acute) KATIE (acute kidney injury) (Acute) Hyponatremia (Acute) Subjective: The patient was seen and examined. Complains of ongoing hiccups. No nausea, vomiting, or diarrhea. Denies shortness of breath at rest but does get dyspneic on exertion. Minimal sputum production of clear phlegm. Maintains appropriate saturations on room air at rest, requiring 2L on exertion. Objective: Recent lab and culture data reviewed. White count remains mildly elevated. Potassium mildly low at 3.4. LFTs improved this morning. BNP yesterday was normal. Blood cultures showed no growth in 48 hours. Urine culture no growth. Urine positive for Legionella antigen. C. difficile was negative. - Physical Exam General: Alert, Oriented x3, Cooperative, No apparent distress, - - hiccups continuously HEENT: Atraumatic, Normocephalic Oral: Moist Mucosa Neck: Supple, No Nodes, Trachea Midline Lungs: No rhonchi, No wheeze, No rales, - - minimally diminished Cardiovascular: Regular rate, Regular Rhythm, Normal S1, Normal S2, No murmurs, No rub noted, No Gallop Abdomen: Bowel Sounds Present, Soft, Non Tender, Non-Distended Extremities: No clubbing, No cyanosis, No edema Skin: - - no changes Musculoskeletal: No Tenderness to Palpation of Joints or Extremities Lymphatic: No Cervical, Supraclavicular, or Inguinal Adenopathy Neurological: Cranial nerves II-XII grossly intact, Neuro grossly intact, Motor Exam 5/5 strength throughout Psych/Mental Status: Alert and oriented to time, place, person, mood and affect Vital Signs Temp Pulse Resp BP Pulse Ox 98.7 F 105 H 18 145/98 H 92 11/26/17 02:40 11/26/17 07:08 11/26/17 02:40 11/26/17 02:40 11/26/17 07:05 Oxygen Flow Rate (L/min) 2 Oxygen Delivery Method Room Air Weight: 263 lb 7.238 oz Body Mass Index (BMI) 34.7 Intake and Output for Last 24 Hours 11/24/17 11/25/17 11/26/17 23:59 23:59 23:59 Intake Total 5190 / 5190 3400.3 / 3400.3 800 / 800 Output Total 550 / 550 Balance 4640 / 4640 3400.3 / 3400.3 800 / 800 Microbiology Past 72 Hours 11/23/17 07:29 Urine Culture - Preliminary Urine, Clean Catch Culture exhibits no growth. 11/23/17 08:10 C. difficile DNA Amplification - Final Stool 11/23/17 07:29 Streptococcus pneumoniae Antigen (M - Final Urine, Clean Catch 11/23/17 07:29 Legionella Antigen - Final Urine, Clean Catch Legionella Antigen Laboratory Tests Past 24 Hrs 11/25/17 11/26/17 11/26/17 05:40 05:20 05:20 WBC 13.9 H RBC 4.62 Hgb 13.4 Hct 37.9 L MCV 82.0 MCH 29.0 MCHC 35.4 RDW 13.8 RDW Differential 40.6 Plt Count 314 MPV 9.7 Immature Gran % (Auto) 2.400 H Neut % (Auto) 68.0 Lymph % (Auto) 17.9 L [place] % (Auto) 9.1 Eos % (Auto) 2.0 Baso % (Auto) 0.6 Absolute Neuts (auto) 9.5 H Absolute Lymphs (auto) 2.50 Total Counted Not Reportable Diff Path Review May foll Sodium 139 Potassium 3.4 L Chloride 105 Carbon Dioxide 25.0 Anion Gap 9 BUN 7 Creatinine 0.88 Estim Creat Clear Calc 134.93 Est GFR (MDRD) Af Amer 127 Est GFR (MDRD) Non-Af 105 BUN/Creatinine Ratio 7.9 L Glucose 106 Calcium 8.2 L Total Bilirubin 0.90 AST 195 H ALT 114 H Alkaline Phosphatase 97 B-Natriuretic Peptide 15.3 Total Protein 6.1 L Albumin 2.0 L Globulin 4.1 Albumin/Globulin Ratio 0.5 L POC Glucose 11/26/17 11/25/17 11/25/17 06:46 22:21 16:28 POC Glucose 111 H 116 H 108 11/25/17 11:32 POC Glucose 122 H Medical Necessity - Tobacco Use Smoking Status: Current every day smoker Tobacco Use: Cigarettes - 5-pack-year history Assessment/Plan Active and Suspected Problems CAP (community acquired pneumonia) (Acute) Sepsis (Acute) KATIE (acute kidney injury) (Acute) Hyponatremia (Acute) RECOMMENDATIONS 1. Oxygen supplementation to keep saturations greater than 90% 2. Encourage incentive spirometer/Acapella 3. Increase activity as tolerated, mobilize 4. Continue bronchodilators, antibiotics, Robitussin, antiemetics 5. Continue DVT prophylaxis 6. Follow up in pulmonary clinic in 2 weeks with MEDICATION RECONCILIATION TECHNICIAN, will need repeat imaging in 4-6 weeks IMPRESSIONS 1. Sepsis secondary to CAP and acute UTI with Legionella Afebrile today. He is requiring intermittent oxygen supplementation of 2 L, especially with coughing fits. His chest x-ray 11/25 showed interval progression of multifocal bilateral patchy or lower opacifications, no pleural effusion. However, reports overall he feels better. His dyspnea and loose stools have improved. Robitussin is helping with his coughing fits, however only lasts a short amount of time. Continue bronchodilators, antiemetics, Robitussin. ID following, recommending 10 day course Levaquin 11/26 is day #4). No sputum culture obtained despite productive cough. Tylenol for fevers. He can follow up in the pulmonary clinic in 2 weeks with MEDICATION RECONCILIATION TECHNICIAN. Ambulatory pulse oximetry demonstrates the need for 2L of supplemental oxygen with ambulation. 2. KATIE and hyponatremia Resolved with fluid resuscitation. No indication for renal replacement therapy at this time. Continue to monitor. 3. Tobacco abuse/drug abuse/elevated LFTs Patient with 5 pk-yr history smoking intermittently. Denies need for nicotine patch. Encouraged smoking cessation. Admits to cannabis use but no other drug use despite + urine tox screen in ED (opiates and cannabis). Encouraged ongoing smoking cessation once discharged. LFT's improving. Thank you for the opportunity to participate in this patient's care, please do not hesitate contact us with any further questions or concerns. This note was generated with [employer] dictation software. It may contain incorrect words, spelling, and punctuation that were not noted in checking the note before signing.
[2017-11-26] MEDS: levoFLOXacin IV 750 MG/150 ML BAG 100 MG IV (09:51)
[2017-11-26] MEDS: ChlorproMAZINE 25 MG Tablet PO (10:14)
--- NOTE | 2017-11-26 10:56 | PN.ID_ITS ---
Patient Problems: Active and Suspected Problems CAP (community acquired pneumonia) (Acute) Sepsis (Acute) KATIE (acute kidney injury) (Acute) Hyponatremia (Acute) Subjective: Feeling better, currently off O2, less SOB, no fever, no n/v/d. C/o hiccups. - Physical Exam General: Alert, Cooperative Lungs: Clear to auscultation, Normal air movement Cardiovascular: Regular rate, Regular Rhythm Abdomen: Soft, Non Tender, Non-Distended Skin: No rashes Vital Signs Temp Pulse Resp BP Pulse Ox 98.4 F 76 18 150/89 H 93 11/26/17 08:40 11/26/17 08:40 11/26/17 08:43 11/26/17 08:40 11/26/17 09:40 Oxygen Flow Rate (L/min) [ 2 AMBULATION with Oxygen] Oxygen Flow Rate (L/min) 2 Oxygen Delivery Method Room Air Weight: 119.5 kg Body Mass Index (BMI) 34.7 Intake and Output for Last 24 Hours 11/24/17 11/25/17 11/26/17 23:59 23:59 23:59 Intake Total 5190 / 5190 3400.3 / 3400.3 800 / 800 Output Total 550 / 550 Balance 4640 / 4640 3400.3 / 3400.3 800 / 800 Microbiology Past 72 Hours 11/23/17 07:29 Urine Culture - Final Urine, Clean Catch Culture exhibits no growth. 11/23/17 08:10 C. difficile DNA Amplification - Final Stool 11/23/17 07:29 Streptococcus pneumoniae Antigen (M - Final Urine, Clean Catch 11/23/17 07:29 Legionella Antigen - Final Urine, Clean Catch Legionella Antigen Laboratory Tests Past 24 Hrs 11/25/17 11/26/17 11/26/17 05:40 05:20 05:20 WBC 13.9 H RBC 4.62 Hgb 13.4 Hct 37.9 L MCV 82.0 MCH 29.0 MCHC 35.4 RDW 13.8 RDW Differential 40.6 Plt Count 314 MPV 9.7 Immature Gran % (Auto) 2.400 H Neut % (Auto) 68.0 Lymph % (Auto) 17.9 L [place] % (Auto) 9.1 Eos % (Auto) 2.0 Baso % (Auto) 0.6 Absolute Neuts (auto) 9.5 H Absolute Lymphs (auto) 2.50 Total Counted Not Reportable Diff Path Review May foll Sodium 139 Potassium 3.4 L Chloride 105 Carbon Dioxide 25.0 Anion Gap 9 BUN 7 Creatinine 0.88 Estim Creat Clear Calc 134.93 Est GFR (MDRD) Af Amer 127 Est GFR (MDRD) Non-Af 105 BUN/Creatinine Ratio 7.9 L Glucose 106 Calcium 8.2 L Total Bilirubin 0.90 AST 195 H ALT 114 H Alkaline Phosphatase 97 B-Natriuretic Peptide 15.3 Total Protein 6.1 L Albumin 2.0 L Globulin 4.1 Albumin/Globulin Ratio 0.5 L POC Glucose 11/26/17 11/25/17 11/25/17 06:46 22:21 16:28 POC Glucose 111 H 116 H 108 11/25/17 11:32 POC Glucose 122 H Medical Necessity - Tobacco Use Smoking Status: Current every day smoker Tobacco Use: Cigarettes - 5-pack-year history Route of nutrition/ use of supplements: [] Nutritional Intake: [] IV Site: [] Hess Catheter: [] - Assessment/Plan Antibiotics: [] Assessment/Plan: [] Active and Suspected Problems CAP (community acquired pneumonia) (Acute) Sepsis (Acute) KATIE (acute kidney injury) (Acute) Hyponatremia (Acute) Legionella pneumonia - Fever and wbc much improved. HIV and hep panel neg. Plan would be for 10 days of levaquin 750mg qday, currently day 5. LFTs improved today. will follow, d/w Dr. Sanches.
--- NOTE | 2017-11-26 11:18 | PCM.DC ---
- Discharge Diagnoses Current Active Problems: Current Active and Chronic Problems (1) Acute Sepsis secondary to Acute Legionella Pneumonia (2) Acute UTI RULED OUT (Urine culture without growth) (3) Nausea, emesis, diarrhea, Resolved, secondary to #1 (4) Acute kidney injury, Secondary to #1 and #3 (5) Hyponatremia, Hypovolemic, Secondary to #1 and #3 (6) New Diagnosis w/ Diabetes mellitus type II, Hyperglycemia (7) Obesity (8) Elevated LFTs, Improving, suspected secondary to #1, #2, #4 and possibly antibiotic therapy (9) Polysubstance Use, UDS + opiates and cannabis (8) Tobacco Abuse You will use the following diet at home:: Calorie/Carbohydrate Controlled (specify 1200, 1400, etc) - ADA 1800 calorie diet recommended Your food should be the consistency of: Regular Your liquids should be the consistency of: Regular/Thin Discharge Activity: - - Avoid aggressive activity until clinically improved, completed antibiotic therapy and re-assessed per your primary care physician and pulmonary. May resume sexual activity in: 10-14 days Weight Bearing Status: Weight bearing as tolerated Call your doctor if you observe: Fever of 101 or Higher, Inability to urinate, Inability to have a bowel movement, Shortness of breath, Dizziness, Fainting spells, Chest pain, Uncontrolled pain Instructions: Discharge Instructions for Pneumonia, Getting a Pneumococcal Vaccination, Pneumonia Treatment, Legionella Antibody, Using a Blood Sugar Log, Hyperglycemia (High Blood Sugar), Hypoglycemia (Low Blood Sugar), Resources for People with Diabetes, What Is Type 2 Diabetes?, How to Check Your Blood Sugar, Oral Medications for Type 2 Diabetes, Healthy Meals for Diabetes, Traveling with Oxygen, Using Oxygen Safely, Using Oxygen at Home Additional Instructions: Please have follow-up complete metabolic panel with your primary care physician at follow-up as your liver enzymes were elevated but were improving upon discharge. Please continue oxygen supplementation until cleared for transition to room air per Pulmonary medicine or your primary care physician. You cannot smoke while using oxygen. 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 Allergies/Adverse Reactions: Allergies No Known Allergies Allergy (Verified 11/22/17 19:54) Medications to take at Discharge Albuterol IH (ProAir) [Proair Hfa] 1 puff INHALATION Q4H PRN PRN #1 inhaler 11/26/17 Guaifenesin [Mucinex] 1,200 mg PO BID #20 tbmp.12hr 11/26/17 Levofloxacin [Levaquin] 750 mg PO DAILY #5 tab 11/26/17 Metformin HCl 500 mg PO DAILY #30 tab 11/26/17 The following prescriptions were given: Albuterol IH (ProAir) [Proair Hfa] 1 puff INHALATION Q4H PRN PRN #1 inhaler PRN Reason: Dyspnea Levofloxacin [Levaquin] 750 mg PO DAILY #5 tab Metformin HCl 500 mg PO DAILY #30 tab Guaifenesin [Mucinex] 1,200 mg PO BID #20 tbmp.12hr Orders to be completed after discharge: Glucometer Location: None Selected Primary Care Physician: Key Doctor,Out of [Primary Care Provider] - Please follow up with your Primary Care Physician in: Follow-up with PCP within 3-5 days. Please Follow Up With: Geronimo Johnson DO When: Follow-up with Pulmonary 2 weeks, may see ENTERTAINMENT AGENT. Proposed Discharge Date: 11/26/17
[2017-11-26 11:25] LABS: Bedside Glucose 139 mg/dL (70-110)
--- NOTE | 2017-11-26 11:27 | DCINST_ITS ---
- Discharge Diagnoses Current Active Problems: Current Active and Chronic Problems (1) Acute Sepsis secondary to Acute Legionella Pneumonia (2) Acute UTI RULED OUT (Urine culture without growth) (3) Nausea, emesis, diarrhea, Resolved, secondary to #1 (4) Acute kidney injury, Secondary to #1 and #3 (5) Hyponatremia, Hypovolemic, Secondary to #1 and #3 (6) New Diagnosis w/ Diabetes mellitus type II, Hyperglycemia (7) Obesity (8) Elevated LFTs, Improving, suspected secondary to #1, #2, #4 and possibly antibiotic therapy (9) Polysubstance Use, UDS + opiates and cannabis (8) Tobacco Abuse You will use the following diet at home:: Calorie/Carbohydrate Controlled ( specify 1200, 1400, etc) - ADA 1800 calorie diet recommended Your food should be the consistency of: Regular Your liquids should be the consistency of: Regular/Thin Discharge Activity: - - Avoid aggressive activity until clinically improved, completed antibiotic therapy and re-assessed per your primary care physician and pulmonary. May resume sexual activity in: 10-14 days Weight Bearing Status: Weight bearing as tolerated Call your doctor if you observe: Fever of 101 or Higher, Inability to urinate, Inability to have a bowel movement, Shortness of breath, Dizziness, Fainting spells, Chest pain, Uncontrolled pain Instructions: Discharge Instructions for Pneumonia, Getting a Pneumococcal Vaccination, Pneumonia Treatment, Legionella Antibody, Using a Blood Sugar Log, Hyperglycemia (High Blood Sugar), Hypoglycemia (Low Blood Sugar), Resources for People with Diabetes, What Is Type 2 Diabetes?, How to Check Your Blood Sugar, Oral Medications for Type 2 Diabetes, Healthy Meals for Diabetes, Traveling with Oxygen, Using Oxygen Safely, Using Oxygen at Home Additional Instructions: Please have follow-up complete metabolic panel with your primary care physician at follow-up as your liver enzymes were elevated but were improving upon discharge. Please continue oxygen supplementation until cleared for transition to room air per Pulmonary medicine or your primary care physician. You cannot smoke while using oxygen. 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 Allergies/Adverse Reactions: Allergies No Known Allergies Allergy (Verified 11/22/17 19:54) Medications to take at Discharge Albuterol IH (ProAir) [Proair Hfa] 1 puff INHALATION Q4H PRN PRN #1 inhaler Guaifenesin [Mucinex] 1,200 mg PO BID #20 tbmp.12hr 11/26/17 Levofloxacin [Levaquin] 750 mg PO DAILY #5 tab 11/26/17 Metformin HCl 500 mg PO DAILY #30 tab 11/26/17 The following prescriptions were given: Albuterol IH (ProAir) [Proair Hfa] 1 puff INHALATION Q4H PRN PRN #1 inhaler PRN Reason: Dyspnea Levofloxacin [Levaquin] 750 mg PO DAILY #5 tab Metformin HCl 500 mg PO DAILY #30 tab Guaifenesin [Mucinex] 1,200 mg PO BID #20 tbmp.12hr Orders to be completed after discharge: Glucometer Location: None Selected Primary Care Physician: Key Doctor,Out of [Primary Care Provider] - Please follow up with your Primary Care Physician in: Follow-up with PCP within 3-5 days. Please Follow Up With: Geronimo Johnson DO When: Follow-up with Pulmonary 2 weeks, may see REAL ESTATE SALES AGENT. Proposed Discharge Date: 11/26/17
[2017-11-26 12:16] LABS: Pathologist Review Reviewed
--- NOTE | 2017-11-26 12:41 | CASEMGMT ---
Per Eneida ZAZUETA, pt qualifies for home oxygen at this time. This RN CM to room with pt and sig other and pt states no preference on DME company at this time. Advised pt that [facility] is in-network with his insurance and they are connected with [place], as pt lives in [place]. Pt states that he will be staying here in [place] with sig other at this time. Pt still agrees with [facility] and sig other provides address to this RN CM at this time. Referral faxed to [facility] at this time with updated address. Call placed to [facility] and verified that fax was received. F2F was sent with initial referral. Pt can be discharged once oxygen tank delivered from [facility]. Tiago ZAZUETA CM
--- NOTE | 2017-11-26 13:33 | PCM.DC.SUM ---
Discharge Date and Diagnosis - Problem List Patient Problems: Active and Suspected Problems CAP (community acquired pneumonia) (Acute) Sepsis (Acute) KATIE (acute kidney injury) (Acute) Hyponatremia (Acute) Date of Admission: 11/22/17 Date of Discharge: 11/26/17 - Primary Discharge Diagnosis Active and Suspected Problems (1) Acute Sepsis and Hypoxia secondary to Acute Legionella Pneumonia (2) Acute UTI RULED OUT (Urine culture without growth) (3) Nausea, emesis, diarrhea, Resolved, secondary to #1 (4) Acute kidney injury, Secondary to #1 and #3 (5) Hyponatremia, Hypovolemic, Secondary to #1 and #3 (6) New Diagnosis w/ Diabetes mellitus type II, Hyperglycemia (7) Obesity (8) Elevated LFTs, Improving, suspected secondary to #1, #2, #4 and possibly antibiotic therapy (9) Polysubstance Use, UDS + opiates and cannabis (8) Tobacco Abuse - Secondary Discharge Diagnosis (1) Obesity (2) Polysubstance Use, UDS + opiates and cannabis (3) Tobacco Abuse Hospital Course and Treatment Dr. Mercado ID Dr. Johnson Pulmonary Operations: None Procedures: EKG Summary of Care Provided: The patient is a 32 y/o M w/ PMHx: Obesity who presented to the [facility] ED on 11/22/17 with history of ongoing progressively worsening dyspnea, productive cough, fever, nausea and emesis x 5 days. CXR in the ED w/ right upper lobe and perihilar patchy opacities. Admission CBC w/ WBC 22.2 with left shift. Admitted to telemetry, maintained on oxygen with wean as tolerated to room air, continue ATC duonebs, PRN albuterol, maintained on IV Rocephin and Azithromycin-->transitioned 11/23/17 back to Levaquin (duration x 10-14 days) given + legionella antigen, HOB, IS parameters w/ urine antigens w/ + legionella antigen. Bld cx x 2 obtained in the ED with NGTD. LA 1.7-->1.4 repeat w/ 11/24/17 repeat 1.2. Infectious control contacted and interviewed patient for risk factors. C. difficile assay negative, felt likely secondary to acute Legionella infection given this may also cause GI side effects in addition to pneumonia presentation. UA initially concerning for UTI however UCx without growth. Onset 09/27/17 AM hypoxia, intermittently, mid-high 80s, worsened CXR w/ worsening alveolar opacifications consistent with pneumonitis versus edema, no central vascular congestion, no pleural effusion, no pneumothorax. During admission additional findings included acute kidney injury secondary to acute Legionella pneumonia, poor intake and GI losses w/ N/V w admission BUN/Cr 13/1.61, prior baseline creatinine reported normal, hydrated, repeat 11/24/17 BUN/Cr 11/1.30-->11/26/17 BUN/Cr 7/0.88, resolved. During admission patient with noted hyperglycemia, HgbA1c obtained and noted 6.7%, patient following renal function improvement, started upon low dose metformin upon discharge w/ glucometer rx also and diabetic education with encouraged PCP follow-up for titration and recheck. Encouraged Weight loss and lifestyle changes encouraged w/ nutrition consulted for education and teaching. During admission, patient had noted elevated liver enzymes, initially AST/ALT 95/60-->11/24/17 AST/ALT 291/100-->11/25/17 AST/ALT 260/118, liver US obtained w/ liver prominent in size but no significant abnormal echotexture or evidence of masses, normal-appearing gallbladder, no biliary ductal dilation, Hepatitis panel unremarkable, HIV negative with follow-up 11/26/17 AST/ALT 195/114, improving, felt possibly secondary to acute infection and antibiotic therapy. Per discussion with ID, given improved liver function tests, decision for continued levaquin therapy for total 10 days; however, patient given rx for repeat CMP and if worsened again recommendation for transition to azithromycin regimen w/ labs requested to be faxed to ID for review also. Upon admission UDS obtained and + opiates and cannabis, only admitted to cannabis usage despite UDS review and noted last 4 weeks prior despite current positive testing. Encouraged tobacco cessation, inpatient consultation per RT, deferred NR offer. Pulmonary and ID consultation obtained during admission and agreed with management. Prior to discharge oxygenation testing performed which included 93% oxygenation on room air at rest, 85% oxygenation with ambulation on room air, improvement to 91% oxygenation with ambulation on 2 L nasal cannula therefore patient was set up for home oxygen. 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 DAY OF DISCHARGE PROGRESS NOTE: Subjective: Patient without acute event overnight per self and nursing report. Patient denies fever, chills, nausea, emesis, abdominal pain, chest pain or dyspnea. Patient agreeable to discharge to home. Patient will be discharged with follow-up with encouraged establishment and follow-up with primary care physician within 3-5 days in addition to Pulmonary, Dr. Johnson in 2 weeks. Directed to remain on oxygen until re-assessment. Objective: T 98.4, heart rate 66, BP 138/76, respiratory rate 16, 96% on 2 L nasal cannula. Physical Examination: General: awake, alert, oriented x 3 and cooperative, seated upright in bed in no apparent distress. Skin: normal color, turgor, no icterus, cyanosis. HEENT: AT/NC, EOMI, PERRLA, MMM. Lungs: Diminished BL, > bases, decreased effort, no rales, ronchi or wheezing. Heart: Currently regular rate and regular rhythm; no gallop, rub audible. Abdomen: soft, obese, NTTP, ND, normal BS. Extremities: no cyanosis, clubbing, or edema. Neurological: patient awake, alert, oriented x 3; cognitive function intact; pupils equally reactive to light and accomodation; cranial nerves II-XII grossly normal, moving all 4 extremities, no focal deficits, strength improved, mildly globally decreased. Psychiatric: affect appears normal, no acute evidence of depressive or anxiety feelings. Assessment and Plan: Please see hospital summary above. Discharge Activity: - - Avoid aggressive activity until clinically improved, completed antibiotic therapy and re-assessed per your primary care physician and pulmonary. May resume sexual activity in: 10-14 days Weight Bearing Status: Weight bearing as tolerated Call your doctor if you observe: Fever of 101 or Higher, Inability to urinate, Inability to have a bowel movement, Shortness of breath, Dizziness, Fainting spells, Chest pain, Uncontrolled pain Home Medications: Medications to take at Discharge Albuterol IH (ProAir) [Proair Hfa] 1 puff INHALATION Q4H PRN PRN #1 inhaler 11/26/17 Chlorpromazine HCl 25 mg PO TID PRN PRN #30 tab 11/26/17 Guaifenesin [Mucinex] 1,200 mg PO BID #20 tbmp.12hr 11/26/17 Levofloxacin [Levaquin] 750 mg PO DAILY #5 tab 11/26/17 Metformin HCl 500 mg PO DAILY #30 tab 11/26/17 Following Prescrptions Were Given to Patient: Albuterol IH (ProAir) [Proair Hfa] 1 puff INHALATION Q4H PRN PRN #1 inhaler PRN Reason: Dyspnea Chlorpromazine HCl 25 mg PO TID PRN PRN #30 tab PRN Reason: intractable hiccups Levofloxacin [Levaquin] 750 mg PO DAILY #5 tab Metformin HCl 500 mg PO DAILY #30 tab Guaifenesin [Mucinex] 1,200 mg PO BID #20 tbmp.12hr Other Amb Orders: Glucometer Location: None Selected Primary Care Physician: [facility] Doctor,Out of [Primary Care Provider] - Please follow up with your Primary Care Physician in: Follow-up with PCP within 3-5 days. Please Follow Up With: Geronimo Johnson, When: Follow-up with Pulmonary 2 weeks, may see ACOUSTIC WARFARE ANALYST. Patient Instructions: Legionella Antibody, Using a Blood Sugar Log, Getting a Pneumococcal Vaccination, Hyperglycemia (High Blood Sugar), Hypoglycemia (Low Blood Sugar), Resources for People with Diabetes, What Is Type 2 Diabetes?, How to Check Your Blood Sugar, Oral Medications for Type 2 Diabetes, Healthy Meals for Diabetes, Traveling with Oxygen, Using Oxygen Safely, Using Oxygen at Home, Pneumonia Treatment, Discharge Instructions for Pneumonia Disposition: Home Minutes spent on discharge:: 35 Patient Condition:: Fair Medical Necessity - Tobacco Use Smoking Status: Current every day smoker Tobacco Use: Cigarettes - 5-pack-year history Meaningful Use Info Meaningful Use Diagnoses (Choose all that apply): None applicable Code Visit Inpatient E&M: 96849 Disch Hosp
--- NOTE | 2017-11-26 13:44 | DS.PCM_ITS ---
Discharge Date and Diagnosis - Problem List Patient Problems: Active and Suspected Problems CAP (community acquired pneumonia) (Acute) Sepsis (Acute) KATIE (acute kidney injury) (Acute) Hyponatremia (Acute) Date of Admission: 11/22/17 Date of Discharge: 11/26/17 - Primary Discharge Diagnosis Active and Suspected Problems (1) Acute Sepsis and Hypoxia secondary to Acute Legionella Pneumonia (2) Acute UTI RULED OUT (Urine culture without growth) (3) Nausea, emesis, diarrhea, Resolved, secondary to #1 (4) Acute kidney injury, Secondary to #1 and #3 (5) Hyponatremia, Hypovolemic, Secondary to #1 and #3 (6) New Diagnosis w/ Diabetes mellitus type II, Hyperglycemia (7) Obesity (8) Elevated LFTs, Improving, suspected secondary to #1, #2, #4 and possibly antibiotic therapy (9) Polysubstance Use, UDS + opiates and cannabis (8) Tobacco Abuse - Secondary Discharge Diagnosis (1) Obesity (2) Polysubstance Use, UDS + opiates and cannabis (3) Tobacco Abuse Hospital Course and Treatment Dr. Mercado ID Dr. Johnson Pulmonary Operations: None Procedures: EKG Summary of Care Provided: The patient is a 32 y/o M w/ PMHx: Obesity who presented to the [facility] ED on with history of ongoing progressively worsening dyspnea, productive cough, fever, nausea and emesis x 5 days. CXR in the ED w/ right upper lobe and perihilar patchy opacities. Admission CBC w/ WBC 22.2 with left shift. Admitted to telemetry, maintained on oxygen with wean as tolerated to room air, continue ATC duonebs, PRN albuterol, maintained on IV Rocephin and Azithromycin--> transitioned 11/23/17 back to Levaquin (duration x 10-14 days) given + legionella antigen, HOB, IS parameters w/ urine antigens w/ + legionella antigen. Bld cx x 2 obtained in the ED with NGTD. LA 1.7-->1.4 repeat w/ repeat 1.2. Infectious control contacted and interviewed patient for risk factors. C. difficile assay negative, felt likely secondary to acute Legionella infection given this may also cause GI side effects in addition to pneumonia presentation. UA initially concerning for UTI however UCx without growth. Onset 09/27/17 AM hypoxia, intermittently, mid-high 80s, worsened CXR w/ worsening alveolar opacifications consistent with pneumonitis versus edema, no central vascular congestion, no pleural effusion, no pneumothorax. During admission additional findings included acute kidney injury secondary to acute Legionella pneumonia, poor intake and GI losses w/ N/V w admission BUN/Cr 13/1.61, prior baseline creatinine reported normal, hydrated, repeat 11/24/17 BUN/Cr 11/1.30-->11/26/17 BUN/Cr 7/0.88, resolved. During admission patient with noted hyperglycemia, HgbA1c obtained and noted 6.7%, patient following renal function improvement, started upon low dose metformin upon discharge w/ glucometer rx also and diabetic education with encouraged PCP follow-up for titration and recheck. Encouraged Weight loss and lifestyle changes encouraged w/ nutrition consulted for education and teaching. During admission, patient had noted elevated liver enzymes, initially AST/ALT 95 /60-->11/24/17 AST/ALT 291/100-->11/25/17 AST/ALT 260/118, liver US obtained w/ liver prominent in size but no significant abnormal echotexture or evidence of masses, normal-appearing gallbladder, no biliary ductal dilation, Hepatitis panel unremarkable, HIV negative with follow-up 11/26/17 AST/ALT 195/114, improving, felt possibly secondary to acute infection and antibiotic therapy. Per discussion with ID, given improved liver function tests, decision for continued levaquin therapy for total 10 days; however, patient given rx for repeat CMP and if worsened again recommendation for transition to azithromycin regimen w/ labs requested to be faxed to ID for review also. Upon admission UDS obtained and + opiates and cannabis, only admitted to cannabis usage despite UDS review and noted last 4 weeks prior despite current positive testing. Encouraged tobacco cessation, inpatient consultation per RT, deferred NR offer. Pulmonary and ID consultation obtained during admission and agreed with management. Prior to discharge oxygenation testing performed which included 93% oxygenation on room air at rest, 85% oxygenation with ambulation on room air, improvement to 91% oxygenation with ambulation on 2 L nasal cannula therefore patient was set up for home oxygen. 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 DAY OF DISCHARGE PROGRESS NOTE: Subjective: Patient without acute event overnight per self and nursing report. Patient denies fever, chills, nausea, emesis, abdominal pain, chest pain or dyspnea. Patient agreeable to discharge to home. Patient will be discharged with follow-up with encouraged establishment and follow-up with primary care physician within 3-5 days in addition to Pulmonary, Dr. Johnson in 2 weeks. Directed to remain on oxygen until re-assessment. Objective: T 98.4, heart rate 66, BP 138/76, respiratory rate 16, 96% on 2 L nasal cannula. Physical Examination: General: awake, alert, oriented x 3 and cooperative, seated upright in bed in no apparent distress. Skin: normal color, turgor, no icterus, cyanosis. HEENT: AT/NC, EOMI, PERRLA, MMM. Lungs: Diminished BL, > bases, decreased effort, no rales, ronchi or wheezing. Heart: Currently regular rate and regular rhythm; no gallop, rub audible. Abdomen: soft, obese, NTTP, ND, normal BS. Extremities: no cyanosis, clubbing, or edema. Neurological: patient awake, alert, oriented x 3; cognitive function intact; pupils equally reactive to light and accomodation; cranial nerves II-XII grossly normal, moving all 4 extremities, no focal deficits, strength improved, mildly globally decreased. Psychiatric: affect appears normal, no acute evidence of depressive or anxiety feelings. Assessment and Plan: Please see hospital summary above. Discharge Activity: - - Avoid aggressive activity until clinically improved, completed antibiotic therapy and re-assessed per your primary care physician and pulmonary. May resume sexual activity in: 10-14 days Weight Bearing Status: Weight bearing as tolerated Call your doctor if you observe: Fever of 101 or Higher, Inability to urinate, Inability to have a bowel movement, Shortness of breath, Dizziness, Fainting spells, Chest pain, Uncontrolled pain Home Medications: Medications to take at Discharge Albuterol IH (ProAir) [Proair Hfa] 1 puff INHALATION Q4H PRN PRN #1 inhaler Chlorpromazine HCl 25 mg PO TID PRN PRN #30 tab 11/26/17 Guaifenesin [Mucinex] 1,200 mg PO BID #20 tbmp.12hr 11/26/17 Levofloxacin [Levaquin] 750 mg PO DAILY #5 tab 11/26/17 Metformin HCl 500 mg PO DAILY #30 tab 11/26/17 Following Prescrptions Were Given to Patient: Albuterol IH (ProAir) [Proair Hfa] 1 puff INHALATION Q4H PRN PRN #1 inhaler PRN Reason: Dyspnea Chlorpromazine HCl 25 mg PO TID PRN PRN #30 tab PRN Reason: intractable hiccups Levofloxacin [Levaquin] 750 mg PO DAILY #5 tab Metformin HCl 500 mg PO DAILY #30 tab Guaifenesin [Mucinex] 1,200 mg PO BID #20 tbmp.12hr Other Amb Orders: Glucometer Location: None Selected Primary Care Physician: [facility] Doctor,Out of [Primary Care Provider] - Please follow up with your Primary Care Physician in: Follow-up with PCP within 3-5 days. Please Follow Up With: Geronimo Johnson, When: Follow-up with Pulmonary 2 weeks, may see DRAMA PROFESSOR. Patient Instructions: Legionella Antibody, Using a Blood Sugar Log, Getting a Pneumococcal Vaccination, Hyperglycemia (High Blood Sugar), Hypoglycemia (Low Blood Sugar), Resources for People with Diabetes, What Is Type 2 Diabetes?, How to Check Your Blood Sugar, Oral Medications for Type 2 Diabetes, Healthy Meals for Diabetes, Traveling with Oxygen, Using Oxygen Safely, Using Oxygen at Home, Pneumonia Treatment, Discharge Instructions for Pneumonia Disposition: Home Minutes spent on discharge:: 35 Patient Condition:: Fair Medical Necessity - Tobacco Use Smoking Status: Current every day smoker Tobacco Use: Cigarettes - 5-pack-year history Meaningful Use Info Meaningful Use Diagnoses (Choose all that apply): None applicable Code Visit Inpatient E&M: 25482 Disch Hosp
== END 2017-11-26 15:18 | disposition home health service (06) | DRG 137 ==
LOC: ED 20:25 → PCU 11-23 01:17
PROVIDERS: Internal Medicine Critical Care Medicine; Admitting Provider Internal Medicine; Emergency Provider Emergency Medicine; Visit Provider Family Medicine
DX: J15.6 Pneumonia due to other Gram-negative bacteria (principal); N39.0 Urinary tract infection, site not specified; N17.9 Acute kidney failure, unspecified; E87.1 Hypo-osmolality and hyponatremia; E86.1 Hypovolemia; E11.65 Type 2 diabetes mellitus with hyperglycemia; F11.90 Opioid use, unspecified, uncomplicated; R09.02 Hypoxemia; F17.210 Nicotine dependence, cigarettes, uncomplicated; E66.9 Obesity, unspecified; R06.6 Hiccough; R94.5 Abnormal results of liver function studies; F12.90 Cannabis use, unspecified, uncomplicated; Z68.34 Body mass index [BMI] 34.0-34.9, adult; Z99.81 Dependence on supplemental oxygen; Z79.84 Long term (current) use of oral hypoglycemic drugs
CPT/HCPCS: 36415; 71046; 76705; 80053; 80307; 81001; 82962; 83036; 83605; 83880; 85025; 86703; 86704; 86705; 86706; 86708; 86709; 86803; 87040; 87086; 87340; 87449; 87493; 87804; 93005; 94667; 94762; 97802; 97803; 99283; 99406; J7030; J7040; A4216; J2405

== ENCOUNTER → 2020-05-07 16:33 | Outpatient (CLI) | payer MEDICAID, SELFPAY ==
[2017-11-23 01:53] VITALS: BMI 34.7
[2020-05-07 17:25] LABS: Lipase 122 U/L (73-393)
== END ==
PROVIDERS: Referring Provider Nurse Practitioner Family; Visit Provider Nurse Practitioner Family
DX: R11.2 Nausea with vomiting, unspecified (principal)
CPT/HCPCS: 83690

== ENCOUNTER 2021-10-07 08:43 | Emergency (ER) | payer MEDICAID, SELFPAY ==
[2021-10-07 08:44] VITALS: BP 181/120; PULSE 107; RESP 18; TEMP 36.9; O2SAT 100; BMI 38.0
--- NOTE | 2021-10-07 09:03 | RAD_ITS ---
STUDY: X-RAY - RIGHT FOOT CLINICAL: Male, 36 years old. Injury/Pain. Great toe. TECHNIQUE: 3 view(s) of the foot. COMPARISON: None. FINDINGS: Normal talus, calcaneus, and tarsal bones. Normal visualized subtalar, talonavicular, calcaneocuboid, tarsal and tarsometatarsal articulations. Normal metatarsi. Normal metatarsophalangeal joint of the great toe. Normal tibial and fibular sesamoid bones. Normal interphalangeal joint of the great toe. Nondisplaced comminuted fracture of the proximal phalanx of the great toe. Normal second through fifth metatarsophalangeal joints. Normal interphalangeal joints and phalanges of the lesser toes. There is non-specific soft tissue swelling of the foot. RAD/Foot min 3 Views IMPRESSION: Nondisplaced comminuted fracture of the proximal phalanx of the great toe. Soft tissue swelling. Electronically Signed: Glenn Del Cid MD at 9:36 EST ,
--- NOTE | 2021-10-07 09:12 | ED.VIS.LOWEX ---
HPI History of Present Illness Chief Complaint: Lower Extremity Injury Informant: patient Narrative Narrative: Patient is a 36-year-old male presenting with right great toe pain. Patient states his foot got stuck on the stairs yesterday and his toe went underneath his foot. He has been having pain, swelling and bruising since then. Notes that he has stayed on his feet all day for work. Did not take any for pain prior to arrival. Denies any numbness or tingling. Denies any head injury or any other injuries associate with a fall. No other complaints at this time. States he has been having some chronic ankle pain which is unrelated today. [facility] Medical History History of tibial fracture Medical History no medical history Home Medications ibuprofen 600 mg PO Q6H PRN PRN #20 tab 10/07/21 [Rx Last Taken Unknown] oxycodone-acetaminophen [Percocet] 1 tab PO Q6H PRN 3 Days #12 tab 10/07/21 [Rx Last Taken Unknown] Allergy/AdvReac Type Severity Reaction Status Date / Time No Known Allergies Allergy Verified 10/07/21 08:46 Social History Smoking Status: Current every day smoker tobacco type: cigarettes ROS ROS ED Constitutional Constitutional ED: Denies chills or fever(s) Cardiovascular Cardiovascular: Denies chest pain Respiratory/Chest Respiratory/Chest: Denies dyspnea Gastrointestinal Gastrointestinal: Denies abdominal pain, nausea or vomiting Musculoskeletal Musculoskeletal: Reports other Details: Right great toe pain Integumentary Reports other Details: Bruising to right great toe ; Denies rash Neurologic Neurologic: Denies headache(s), paresthesias or weakness EXAM Physical Exam Const Vital Signs: 10/07/21 08:44 Temperature 98.4 F Temperature Source Temporal Pulse Rate 107 H Respiratory Rate 18 Blood Pressure 181/120 H Blood Pressure Mean 140 Pulse Ox 100 Oxygen Delivery Method Room Air Positive well nourished and well developed General Appearance ED: well developed HEENT normocephalic and atraumatic Neck full ROM Chest Wall inspection of chest normal Resp normal respiratory effort Cardio Cardio Narrative: 2+ DP pulse Extremity Extremity Narrative: Ecchymosis and swelling of the right great toe. Diminished range of motion of the right great toe. No obvious deformity present. No pain to palpation of the right foot or ankle. Normal Houser test. Patient has antalgic gait. Neuro oriented x3, moves all extremities and no sensory deficits noted Sensorium / Orientation: alert Motor Exam: strength 5/5 throughout Psych mental status grossly normal Skin Skin Narrative: Ecchymosis to the right great toe. No subungual hematoma noted. Rashes: no rashes Trauma: Negative for abrasion MDM MDM MDM Narrative Medical decision making narrative: Patient has injury to right great toe. X-ray shows nondisplaced comminuted fracture of the proximal phalanx of the great toe. This is interpreted by myself as well as radiology. Given a postop shoe and crutches. Given outpatient follow-up with podiatry. Counseled on return precautions. Is given a dose of Motrin in the ER. Is given work restrictions. Will be given a short course of Percocet for pain control. Patient is counseled on signs and symptoms requiring return to the emergency room. Patient verbalizes agreement and understand this plan. Patient discharged home in stable and improved condition. Radiography X-Ray: Read by ED Physician, Read by Radiologist, Fracture and - (Right foot ) Diagnostic Testing: Clinical Impression(s) from Imaging Studies Foot X-Ray 10/07/21 09:03 IMPRESSION: Nondisplaced comminuted fracture of the proximal phalanx of the great toe. Soft tissue swelling. Electronically Signed: Glenn Del Cid MD at 9:36 EST , Discharge Plan Triage Chief Complaint: Lower Extremity Injury ED Provider: Dora Saha Dx/Rx/DC Orders Clinical Impression: Closed fracture of right great toe Instructions: ED Fracture, Toe, Closed Prescriptions: New oxycodone-acetaminophen [Percocet] 5-325 mg tablet 1 tab PO Q6H PRN (Reason: pain) 3 Days Qty: 12 RF: 0 ibuprofen 600 mg tablet 600 mg PO Q6H PRN PRN (Reason: Pain Score 1-10/10) Qty: 20 RF: 0 Primary Care Provider: Care Physician,No Primary Referrals: Salty Acuna DPM [STAFF PHYSICIAN] - 3-5 Days Care Physician,No Primary [Primary Care Provider] - Disposition Disposition: Home, Self Care
[2021-10-07] MEDS: Ibuprofen 600 MG Tablet PO (09:22)
--- NOTE | 2021-10-07 10:55 | CM.ED ---
SW Note Referral Source: Case Find Referral Reason: No Primary Care Physician (PCP) SW reviewed chart and noted that patient has no PCP. SW provided patient with list of [facility] and [facility] Physician List for reference. Patient said that he has an appointment for PCP at [facility] on Thursday or Thursday this week. No other issues or concerns voiced at this time. SW remains available for any additional needs. Plan: Provided patient with PCP information Zaina MARTIN
== END 2021-10-07 11:02 | disposition home or self-care (01) ==
PROVIDERS: Emergency Provider Emergency Medicine; Visit Provider Emergency Medicine
DX: S92.401A Displaced unspecified fracture of right great toe, initial encounter for closed fracture (principal); F17.210 Nicotine dependence, cigarettes, uncomplicated; W19.XXXA Unspecified fall, initial encounter
CPT/HCPCS: 73630; 99285

== ENCOUNTER 2021-10-29 12:26 | Emergency (ER) | payer MEDICAID, SELFPAY ==
[2021-10-29 12:26] VITALS: BP 178/122; PULSE 98; RESP 16; TEMP 36.6; O2SAT 99; BMI 38.0
--- NOTE | 2021-10-29 13:10 | EDS_ITS ---
HPI History of Present Illness Chief Complaint: Hyperglycemia Informant: patient and spouse/S.O. Onset/Context/Timing Onset: Weeks Context: Gradual Onset Timing: Intermittent Current Severity: Mild Maximum Severity: Mild Narrative Narrative: 36-year-old male history of low blood pressure in the past but currently on no medications. Also history of elevated blood sugar in the past and was on Metformin in the past but is off of it currently. He is being established with a new local primary care physician but cannot get in with them until sometime in December. Currently he is on no medications. States that his blood sugars have been running elevated in the 350 range. He is peeing more frequently. He denies any weight loss. Prior similar symptoms: Yes Recent Illness/Hospitalization: No PFSH PFSH Medical History History of tibial fracture Home Medications ibuprofen 600 mg PO Q6H PRN PRN #20 tab 10/07/21 [Rx Last Taken Unknown] oxycodone-acetaminophen [Percocet] 1 tab PO Q6H PRN 3 Days #12 tab 10/07/21 [Rx Last Taken Unknown] lisinopril 20 mg PO DAILY 30 Days #30 tab 10/29/21 [Rx Last Taken Unknown] metformin-blood sugar diagnost 500 mg PO BID 30 Days #60 ea 10/29/21 [Rx Last Taken Unknown] Allergy/AdvReac Type Severity Reaction Status Date / Time No Known Allergies Allergy Verified 10/07/21 08:46 Social History Smoking Status: Current every day smoker tobacco type: cigarettes ROS ROS ED ROS Narrative Urinary frequency. Review of Systems ROS Unobtainable: Denies due to encephalopathy Constitutional Constitutional ED: Denies fever(s) Eyes Eyes: Denies change in vision ENT ENT ED: Denies ear pain Cardiovascular Cardiovascular: Denies chest pain Respiratory/Chest Respiratory/Chest: Denies dyspnea Gastrointestinal Gastrointestinal: Denies abdominal pain Genitourinary Genitourinary ED: Reports urinary frequency; Denies dysuria Musculoskeletal Musculoskeletal: Denies myalgias Integumentary Denies rash Neurologic Neurologic: Denies headache(s) Psychiatric Psychiatric: Denies depression Endocrine Endocrinology: Reports polyuria Allergic/Immunologic Allergic/Immunologic ED: Reports urticaria EXAM Physical Exam Narrative Exam Narrative: 36-year-old male vital signs initial blood pressure 170/122. Otherwise unremarkable. Afebrile. H EENT exam unremarkable. Neck nontender. Lungs clear to auscultation bilaterally. Heart regular rate and rhythm no murmur. Abdomen soft nontender. Moving all 4 extremities. Nontender no edema. Neurologically is awake alert with no focal motor deficits. Const Vital Signs: 10/29/21 12:26 10/29/21 12:35 10/29/21 13:49 Temperature 97.8 F Temperature Source Temporal Pulse Rate 98 105 H Respiratory Rate 16 16 Respiratory Pattern Normal Blood Pressure 178/122 H 145/108 H Blood Pressure Mean 140 120 Pulse Ox 99 100 Oxygen Delivery Method Room Air Room Air Positive well nourished, well developed and obese; Negative for cachectic, contractures or unkempt General Appearance ED: well developed and NAD; Negative for unkempt, cachectic, contractures, cyanotic, diaphoretic or pallor Nutritional Appearance: obese; Negative for cachectic HEENT Reports moist mucous membranes Negative for trauma or tenderness Eyes PERRL and EOMs intact bilaterally Neck no lymphadenopathy, supple and no JVD General: Negative for tenderness Chest Wall inspection of chest normal and palpation of chest normal Resp normal respiratory effort and clear to auscultation bilaterally Effort and Inspection: Negative for pain with movement Auscultation: Negative for rales, rhonchi or wheezes Cardio regular rate, regular rhythm, S1 normal heart sound, S2 normal heart sound and no murmurs GI normal to inspection, nondistended, normoactive bowel sounds, non-tender, non- distended and no masses Inspection: Negative for abdominal distention Auscultation: normoactive bowel sounds Palpation: soft; Negative for tender, guarding or rebound tenderness present Back/Spine no CVA tenderness General Back: Negative for CVA tenderness Cervical Spine: Negative for cervical spine tenderness Thoracic Spine / Upper Back: Negative for thoracic spinal tenderness or paraspinal muscle tenderness Extremity normal to inspection General Extremety ED: Negative for edema or tenderness General Extremity: Negative for edema Neuro oriented x3 Sensorium / Orientation: alert; Negative for orientation impaired, lethargic or stuporous Motor Exam: strength 5/5 throughout Psych mental status grossly normal Appearance: Negative for unkempt Mood & Affect: Negative for depressed or tearful Skin no rashes or lesions noted and no wounds General Skin Exam: Negative for jaundice or pallor MDM MDM MDM Narrative Medical decision making narrative: 36-year-old male who most likely is diabetic with elevated blood sugars currently off medications and is also hypertension is currently off medications. He had I discussed the importance along with his significant other of him treating both of these medical conditions. We will check screening labs. He will be given a dose of lisinopril for his elevated blood pressure. And discharged home on both Metformin and lisinopril with an upcoming appointment to see his new primary care physician but that is 6 weeks away or so. Repeat exam patient doing well at 2:28 PM. He will be discharged home. Is most recent blood pressure is 145/108 he did respond to the lisinopril. He will be placed on lisinopril once daily. Metformin 500 twice daily. And follow-up with his PCP as soon as possible. See if he can move up his appointment. Watch his blood sugars daily. Return if worse. Lab Data Attestation: I reviewed the patient's lab results. Lab results narrative: CBC shows a white count 8. H&H 15 and 44. Electrolytes sodium 134 gap of 5 normal BUN and creatinine. Normal potassium of 4.4. Glucose is elevated 345. Labs: Laboratory Results - last 24 hr 10/29/21 10/29/21 13:19 13:19 WBC 8.1 RBC 5.30 Hgb 15.0 Hct 44.8 MCV 84.5 MCH 28.3 MCHC 33.5 RDW Std Deviation 39.1 RDW Coeff of Mike 12.8 Plt Count 281 MPV 9.7 Sodium 134 L Potassium 4.4 Chloride 102 Carbon Dioxide 27.0 Anion Gap 5 BUN 10 Creatinine 1.24 Estim Creat Clear Calc 89.53 Est GFR (MDRD) Af Amer 84 Est GFR (MDRD) Non-Af 70 BUN/Creatinine Ratio 8.1 L Glucose 345 H Calcium 9.2 Discharge Plan Triage Chief Complaint: Hyperglycemia ED Provider: Edi Nation Dx/Rx/DC Orders Clinical Impression: New onset type 2 diabetes mellitus, Hypertension Instructions: ED High Blood Pressure Hypertension, ED Hyperglycemia New Susp Diabetes Prescriptions: New metformin-blood sugar diagnost 500 mg combo pack, tablet and strip 500 mg PO BID 30 Days Qty: 60 RF: 1 lisinopril 20 mg tablet 20 mg PO DAILY 30 Days Qty: 30 RF: 1 No Action oxycodone-acetaminophen [Percocet] 5-325 mg tablet 1 tab PO Q6H PRN (Reason: pain) 3 Days Qty: 12 RF: 0 ibuprofen 600 mg tablet 600 mg PO Q6H PRN PRN (Reason: Pain Score 1-10/10) Qty: 20 RF: 0 Primary Care Provider: Care Physician,No Primary Referrals: Care Physician,No Primary [Primary Care Provider] - As soon as possible Activity Restrictions/Additional Instructions: Check your blood sugar twice daily. Launder results when you see your primary care physician showed them to them so they can determine if they need to adjust your blood pressure medications. If your blood pressures are running too low below 100 you need to be reevaluated. If they are running below 100 hold your blood pressure medication. Lisinopril once a day for your blood pressure. Metformin twice a day for your blood sugar. Check your blood sugars at least twice daily. Log those also and show your primary care provider. Return if feeling worse. Disposition Disposition: Home, Self Care
[2021-10-29 13:27] LABS: Hematocrit 44.8 % (40-54); Mean Corp Hgb Conc 33.5 g/dL (32-36); Mean Corpuscular Hgb 28.3 pg (27.0-32.0); Mean Corpuscular Volume 84.5 fL (80-94); Mean Platelet Vol. 9.7 fl (6.2-12.0); Platelet Count 281 K/mm3 (150-450); RBC Distribution Width CV 12.8 % (11.6-14.6); RBC Distribution Width SD 39.1 fl (35.1-43.9); White Blood Count 8.1 K/mm3 (4.4-11.0)
[2021-10-29 13:40] LABS: Anion Gap 5 (5-15); BUN 10 mg/dL (7-18); BUN/Creat Ratio 8.1 RATIO (10-20); Calcium,Total 9.2 mg/dL (8.5-10.1); Chloride 102 mmol/L (98-107); Creatinine, Serum 1.24 mg/dL (0.70-1.30); EST Glomerular Filtration Rate 70 mL/min (>60); Est Glom Filt Rate - Afr Amer 84 mL/min (>60); Estimated Creatinine Clearance 89.53 ml/min; Glucose 345 mg/dL (74-106); Potassium 4.4 mmol/L (3.5-5.1); Sodium Level 134 mmol/L (136-145)
[2021-10-29] MEDS: Lisinopril 10 MG Tablet PO (13:47)
[2021-10-29 13:49] VITALS: BP 145/108; PULSE 105; RESP 16; O2SAT 100
[2021-10-29 14:40] VITALS: BP 134/105; PULSE 99; RESP 16; O2SAT 98
== END 2021-10-29 14:46 | disposition home or self-care (01) ==
PROVIDERS: Emergency Provider Emergency Medicine; Visit Provider Emergency Medicine
DX: E11.65 Type 2 diabetes mellitus with hyperglycemia (principal); I10 Essential (primary) hypertension; F17.210 Nicotine dependence, cigarettes, uncomplicated; E66.9 Obesity, unspecified; Z79.899 Other long term (current) drug therapy
CPT/HCPCS: 80048; 85027; 99284; A4216

== ENCOUNTER 2023-06-02 08:55 | Emergency (ER) | payer MEDICAID, SELFPAY ==
[2023-06-02 08:56] VITALS: BP 136/98; PULSE 89; RESP 14; TEMP 36.6; O2SAT 99; BMI 38.5
--- NOTE | 2023-06-02 09:00 | EX.ED.DYSGE1 ---
HPI History of Present Illness Chief Complaint: General Illness Informant: patient Onset/Context/Timing Onset: Days Context: Gradual Onset Timing: Continuous Quality: Dull Location: Lower substernal chest Worsened by: Nothing Relieved by: Nothing Narrative Narrative: Patient presents with nausea, vomiting, and diarrhea that has been getting worse over the past few days. Patient denies any hematemesis or coffee-ground emesis. Patient denies any melena or hematochezia. Patient states he is vomiting up his stomach contents. Patient denies any dysuria, frequency, or hematuria. Patient denies any abdominal pain. Patient states he did have some pain in his chest a couple days ago but this has resolved. Patient admits to some subjective fevers and chills but did not take his temperature. Patient also admits to a mild headache. [facility] Medical History (Updated 06/02/23 @ 12:[address] Deon Osorio DO) Diabetes mellitus History of tibial fracture Hypertension Home Medications ibuprofen 600 mg tablet 600 mg PO Q6H PRN PRN Pain Score 1-05/12 #20 tabs 10/07/21 [Rx Last Taken Unknown] oxycodone-acetaminophen 5 mg-325 mg tablet (Percocet) 1 tab PO Q6H PRN pain 3 days #12 tabs 10/07/21 [Rx Last Taken Unknown] lisinopril 20 mg tablet 20 mg PO DAILY 30 days #30 tabs 10/29/21 [Rx Last Taken Unknown] metformin ER 500 mg tablet,ext rel 24 hr-blood sugar diagnostic strips 500 mg PO BID 30 days #60 ea 10/29/21 [Rx Last Taken Unknown] Allergy/AdvReac Type Severity Reaction Status Date / Time No Known Allergies Allergy Verified 06/02/23 08:56 Surgical History (Updated 06/02/23 @ 09:[address] Deon Osorio DO) S/P ORIF (open reduction internal fixation) fracture Social History (Updated 06/02/23 @ 09:[address] Deon Osorio DO) Smokeless tobacco user: chewing tobacco and snuff ROS ROS ED Constitutional Constitutional ED: Reports chills, fever(s) and subjective Eyes Eyes: Denies blurry vision or change in vision ENT ENT ED: Denies rhinorrhea or sore throat Cardiovascular Cardiovascular: Reports chest pain; Denies palpitations Respiratory/Chest Respiratory/Chest: Denies cough or dyspnea Gastrointestinal Gastrointestinal: Reports diarrhea, nausea and vomiting; Denies abdominal pain Genitourinary Genitourinary ED: Denies dysuria or hematuria Musculoskeletal Musculoskeletal: Denies back pain or neck pain Integumentary Denies abscess or rash Neurologic Neurologic: Reports headache(s); Denies weakness Allergic/Immunologic Allergic/Immunologic ED: Denies mouth swelling or urticaria EXAM Physical Exam Const Vital Signs: 06/02/23 08:56 06/02/23 09:15 06/02/23 11:00 Temperature 97.8 F Temperature Source Temporal Pulse Rate 89 Respiratory Rate 14 14 Respiratory Effort Normal Non-Labored Respiratory Pattern Normal Blood Pressure 136/98 H Blood Pressure Mean 110 Pulse Ox 99 Oxygen Delivery Method Room Air Positive well nourished, well developed and obese General Appearance ED: well developed and NAD Nutritional Appearance: obese HEENT Reports moist mucous membranes Neck supple and no JVD Resp normal respiratory effort and clear to auscultation bilaterally Cardio regular rate and regular rhythm GI non-tender and non-distended Auscultation: normoactive bowel sounds Palpation: soft Neuro oriented x3, CN's II-XII intact bilaterally and no sensory deficits noted Sensorium / Orientation: alert Motor Exam: strength 5/5 throughout Psych mental status grossly normal MDM MDM MDM Narrative Medical decision making narrative: Differential diagnosis includes gastroenteritis, viral illness, dehydration, hyperosmolar hyperglycemic nonketotic state, and urinary tract infection. CBC will be obtained to assess for leukocytosis and anemia. Basic metabolic profile will be obtained to assess for electrolyte abnormality and renal function. Urinalysis will be obtained to assess for urinary tract infection. Lab Data Attestation: I reviewed the patient's lab results. Lab results narrative: CBC was reviewed and was within normal limits. Basic metabolic profile was reviewed. Glucose was slightly elevated at 178. The remainder is within normal limits. Urinalysis was reviewed. There is no evidence of urinary tract infection or hematuria. Labs: Laboratory Results - last 24 hr 06/02/23 06/02/23 09:30 11:00 WBC 8.1 RBC 5.20 Hgb 14.7 Hct 44.9 MCV 86.3 MCH 28.3 MCHC 32.7 RDW Std Deviation 39.0 RDW Coeff of Mike 12.3 Plt Count 299 MPV 9.3 Immature Gran % (Auto) 0.200 Neut % (Auto) 58.9 Lymph % (Auto) 33.2 [place] % (Auto) 5.8 Eos % (Auto) 1.8 Baso % (Auto) 0.1 Absolute Neuts (auto) 4.8 Absolute Lymphs (auto) 2.70 Nucleated RBC % 0 Sodium 138 Potassium 4.0 Chloride 108 H Carbon Dioxide 27.0 Anion Gap 3 L BUN 14 Creatinine 1.03 Estim Creat Clear Calc 105.69 Est GFR (MDRD) Af Amer 103 Est GFR (MDRD) Non-Af 85 BUN/Creatinine Ratio 13.6 Glucose 178 H Calcium 8.8 Urine Color Yellow Urine Clarity Clear Urine pH 6.0 Ur Specific [place] 1.020 Urine Protein 15 H Urine Glucose (UA) Normal Urine Ketones 5 H Urine Occult Blood Negative Urine Nitrite Negative Urine Bilirubin Negative Urine Urobilinogen 4 H Ur Leukocyte Esterase Negative Treatment and Re-Evaluation :: Patient was given IV fluids and Zofran. Patient was advised of his findings. Patient was feeling better on reevaluation. Patient was instructed to start with small amounts of fluids more frequently. Patient was instructed to advance to a bland diet and then to a regular diet as he feels better. Patient was instructed to follow-up with his primary care physician in 5 to 7 days. Patient understood and was agreeable with the plan. All questions were answered. Discharge Plan Triage Chief Complaint: General Illness ED Provider: Deon Osorio Dx/Rx/DC Orders Clinical Impression: Diabetes mellitus, Nausea and vomiting Instructions: ED Vomiting (Adult) Prescriptions: No Action oxycodone-acetaminophen [Percocet] 5-325 mg tablet 1 tab PO Q6H PRN (Reason: pain) 3 Days Qty: 12 0RF ibuprofen 600 mg tablet 600 mg PO Q6H PRN PRN (Reason: Pain Score 1-10/10) Qty: 20 0RF metformin-blood sugar diagnost 500 mg combo pack, tablet and strip 500 mg PO BID 30 Days Qty: 60 1RF lisinopril 20 mg tablet 20 mg PO DAILY 30 Days Qty: 30 1RF Stand Alone Forms: ED Work / School Excuse Primary Care Provider: Jhoana Mesa Referrals: Jhoana Mesa MD [Primary Care Provider] - 5-7 Days Care Physician,No Primary [Non-Staff] - Disposition Disposition: Home, Self Care
[2023-06-02] MEDS: Ondansetron 4 MG/2 ML Vial IV (09:30)
[2023-06-02] MEDS: 0.9% Normal Saline (1000mL) 1,000 ML 1000 ML IV (09:30)
[2023-06-02 09:43] LABS: Absolute Neutrophil Count 4.8 X10^3/uL (2.0-7.7); Basophil# 0.01 X10^3/uL; Basophil% 0.1 % (0-1); Eosinophil# 0.15 X10^3/uL; Eosinophils% 1.8 % (0-5); Hematocrit 44.9 % (40-54); Hemoglobin 14.7 g/dL (13.0-16.5); Lymphocyte % 33.2 % (19-41); Mean Corp Hgb Conc 32.7 g/dL (32-36); Mean Corpuscular Hgb 28.3 pg (27.0-32.0); Mean Corpuscular Volume 86.3 fL (80-94); Mean Platelet Vol. 9.3 fl (6.2-12.0); Monocyte# 0.47 X10^3/uL; Monocyte% 5.8 % (0-10); NRBC Flagged by Analyzer 0 % (0-5); Neutrophil # 4.79 X10^3/uL (2.7-7.7); Neutrophil % 58.9 % (47-70); Platelet Count 299 K/mm3 (150-450); RBC Distribution Width CV 12.3 % (11.6-14.6); White Blood Count 8.1 K/mm3 (4.4-11.0)
[2023-06-02 09:55] LABS: Anion Gap 3 (5-15); BUN 14 mg/dL (7-18); BUN/Creat Ratio 13.6 RATIO (10-20); Calcium,Total 8.8 mg/dL (8.5-10.1); Chloride 108 mmol/L (98-107); Creatinine, Serum 1.03 mg/dL (0.70-1.30); EST Glomerular Filtration Rate 85 mL/min (>60); Est Glom Filt Rate - Afr Amer 103 mL/min (>60); Estimated Creatinine Clearance 105.69 ml/min; Glucose 178 mg/dL (74-106); Sodium Level 138 mmol/L (136-145)
[2023-06-02 11:00] VITALS: RESP 14
[2023-06-02 11:11] LABS: Bacteria 0 SEEN /hpf (None Seen); Mucous, Urine 0 SEEN /hpf (<or=2+); Red Blood Cells-Urine 0 SEEN /hpf (0-5); Squamous Epithelial Cells - UA 0 SEEN /hpf (0-5); White Blood Cells 0 SEEN /hpf (0-5)
[2023-06-02 11:13] LABS: Color, Urine Yellow (Yellow); Glucose, Dipstick Normal (Normal); Ketone-Dipstick 5 mg/dl (Negative); Leukocyte Esterase-Dipstick Negative /ul (Negative); Nitrite-Dipstick Negative (Negative); Occult Blood-Urine Negative /ul (Negative); Protein-Dipstick 15 mg/dl (Negative); Urine Bilirubin Dipstick Negative (Negative); Urine Clarity Clear (Clear); Urine Urobilinogen 4 mg/dl (Normal)
== END 2023-06-02 12:54 | disposition home or self-care (01) ==
PROVIDERS: Emergency Provider Emergency Medicine; PCP Internal Medicine; Visit Provider Emergency Medicine
DX: E11.9 Type 2 diabetes mellitus without complications (principal); R11.2 Nausea with vomiting, unspecified; F17.220 Nicotine dependence, chewing tobacco, uncomplicated; E66.9 Obesity, unspecified
CPT/HCPCS: 80048; 81001; 85025; 96361; 96374; 99282; J7030; J2405